=== PATIENT | female | born 1970 | race Caucasian/White ===

== ENCOUNTER → 2016-09-06 | Outpatient (CLI) | payer OTHER | END | disposition home or self-care (01) | LOC: C.LABMFLN 10:46 | PROVIDERS: ATTEND Family Medicine | DX: Z01.818 Encounter for other preprocedural examination (principal); M25.531 Pain in right wrist; M81.0 Age-related osteoporosis without current pathological fracture ==

== ENCOUNTER → 2017-06-04 | Outpatient (CLI) | payer OTHER ==
[~2017-06-04] MED LIST: BUPR200T2 PO; ERGO500037 PO; HYDR-3983 PO; LIDO1CRE16 TOP; PREG1CAP28 PO; TRAZ100T29 PO
== END | disposition home or self-care (01) ==
LOC: C.LABMFLN 08:25
PROVIDERS: ATTEND Family Medicine
DX: M79.2 Neuralgia and neuritis, unspecified (principal)

== ENCOUNTER 2023-05-30 20:37 | Inpatient (IN) ==
[2023-05-30 22:15] LABS: Alanine Aminotransferase 15 U/L (7-52); Albumin Globulin Ratio 1.4 (0.9-2); Albumin Level 3.9 gm/dl (3.4-5.0); Alkaline Phosphatase 58 U/L (34-104); Anion Gap 7 (3-11); Aspartate Aminotransferase 32 U/L (13-39); BUN Creatinine Ratio 20.7 (10-20); Bilirubin,Total 1.3 mg/dl (0.2-1.0); Blood Urea Nitrogen 18 mg/dl (6-23); Calcium 9.1 mg/dl (8.6-10.3); Carbon Dioxide 28 mmol/L (21-32); Chloride 101 mmol/L (98-107); Est GFR (African American) 86.9 ml/min; Globulin 2.7 gm/dl (2.5-4.0); Glucose 106 mg/dl (70-99(Fasting)); Sodium 136 mmol/L (136-145); Total Protein 6.6 gm/dl (6.0-8.3)
[2023-05-30 22:26] LABS: INR 1.3 (0.9-1.1); Partial Thromboplastin Ratio 1.1; Partial Thromboplastin Time 30 Seconds (21-31); Prothrombin Time 14.1 Seconds (9.0-12.0)
[2023-05-30 22:39] LABS: Hematocrit (blood only) 15.4 % (37.0-47.0); Hemoglobin 5.4 g/dl (12.0-16.0); Mean Corpuscular Hemoglobin 36.2 pg (25.0-34.0); Mean Corpuscular Hgb Conc 35.1 g/dL (32.0-36.0); Mean Corpuscular Volume 103.4 fL (80.0-100.0); Mean Platelet Volume 10.2 fL (9.4-12.4); Platelet Count 75 K/uL (130-400); RDW Coefficient of Variation 13.4 % (11.5-14.5); RDW Standard Deviation 49.7 fL (36.4-46.3); Red Blood Count 1.49 M/uL (4.20-5.40); White Blood Count 1.47 K/ul (4.8-10.8)
[2023-05-30 22:44] LABS: Adenovirus PCR Not Detected (NotDetected); Bordetella parapertussis PCR Not Detected (NotDetected); Bordetella pertussis PCR Not Detected (NotDetected); Chlamydia pneumoniae PCR Not Detected (NotDetected); Coronavirus 229E PCR Not Detected (NotDetected); Coronavirus CoV-2 (COVID19)PCR Not Detected (NotDetected); Coronavirus HKU1 PCR Not Detected (NotDetected); Coronavirus NL63 PCR Not Detected (NotDetected); Coronavirus OC43PCR Not Detected (NotDetected); Human Metapneumovirus PCR Not Detected (NotDetected); Influenza A PCR Not Detected (NotDetected); Influenza B PCR Not Detected (NotDetected); Mycoplasma pneumoniae PCR Not Detected (NotDetected); Parainfluenza Virus 1 PCR Not Detected (NotDetected); Parainfluenza Virus 2 PCR Not Detected (NotDetected); Parainfluenza Virus 3 PCR Not Detected (NotDetected); Parainfluenza Virus 4 PCR Not Detected (NotDetected); Respiratory Syncytial VirusPCR Not Detected (NotDetected); Rhinovirus/Enterovirus PCR Not Detected (NotDetected)
[2023-05-30 23:12] LABS: Polychromasia 1+; Tear Drop Cells 1+
[2023-05-30] MEDS: OPTIRAY 320 125ml IV ONE (23:31)
--- NOTE | 2023-05-31 00:07 | CT Scan Report ---
Exam(s): CTA NECK With Contrast IV Amt: 118 ML OPTIRAY 320 EXAM: CT Angiography Neck With Intravenous Contrast CLINICAL HISTORY: Reason for exam: soares. TECHNIQUE: Routine carotid CT angiography protocol was performed with intravenous contrast. NASCET criteria using the distal ICAs for comparison were used for evaluation of stenoses. CTDI is 38.37 mGy and DLP is 1125.22 mGy-cm. Automated exposure control was utilized for the study. A dose lowering technique was utilized adhering to the principles of ALARA. MIP reconstructed images were created and reviewed. CONTRAST: Patient received 118 ML OPTIRAY 320 of IV contrast COMPARISON: None. FINDINGS: Right common carotid artery: Patent. Right internal carotid artery: Patent. Right vertebral artery: Patent. Left common carotid artery: Patent. Left internal carotid artery: Patent. Left vertebral artery: Patent. Other: No significant atherosclerosis or stenosis. IMPRESSION: 1. No dissection, occlusion, or significant stenosis. CAROTID STENOSIS REFERENCE USING NASCET CRITERIA: % ICA stenosis = (1 - narrowest ICA diameter/diameter of distal cervical ICA) x 100. Mild - <50% stenosis. Moderate - 50-69% stenosis. Severe - 70-94% stenosis. Near occlusion - 95-99% stenosis. Occluded - 100% stenosis. Communications: Call Doctor Stroke Electronically signed by: Savanna Curry M.D. 05/31/23 00:07 AM
--- NOTE | 2023-05-31 00:07 | CT Scan Report ---
Exam(s): CTA HEAD With Contrast IV Amt: 118 ML OPTIRAY 320 EXAM: CT Angiography Head With Intravenous Contrast CLINICAL HISTORY: Reason for exam: soares. TECHNIQUE: Axial computed tomographic angiography images of the head with intravenous contrast. CTDI is 38.37 mGy and DLP is 1125.22 mGy-cm. Automated exposure control was utilized for the study. A dose lowering technique was utilized adhering to the principles of ALARA. MIP reconstructed images were created and reviewed. Mild motion artifact. CONTRAST: Patient received 118 ML OPTIRAY 320 of IV contrast COMPARISON: None. FINDINGS: Right internal carotid artery: Patent. Right anterior cerebral artery: Patent. Right middle cerebral artery: Patent. Right posterior cerebral artery: Patent. Right vertebral artery: Patent. Right dominant system. Left internal carotid artery: Patent. Left anterior cerebral artery: Patent. Left middle cerebral artery: Patent. Left posterior cerebral artery: Patent. Left vertebral artery: Patent. Basilar artery: Patent. Other: IMPRESSION: 1. No aneurysm or large vessel occlusion. Communications: Call Doctor Stroke Electronically signed by: Savanna Curry M.D. 05/31/23 00:06 AM
--- NOTE | 2023-05-31 00:09 | CT Scan Report ---
Exam(s): CT HEAD Without Contrast EXAM: CT Head Without Intravenous Contrast CLINICAL HISTORY: Reason for exam: soares. TECHNIQUE: Axial computed tomography images of the head/brain without intravenous contrast. CTDI is 38.37 mGy and DLP is 1125.22 mGy-cm. Automated exposure control was utilized for the study. A dose lowering technique was utilized adhering to the principles of ALARA. Mild to moderate motion artifact. COMPARISON: None. FINDINGS: Brain: No mass effect or acute infarct. No acute hemorrhage. Ventricles: No hydrocephalus or midline shift. Bones/joints: No skull fracture. Soft tissues: No scalp hematoma. Sinuses: Clear. Mastoid air cells: No mastoid effusion. IMPRESSION: 1. No acute intracranial abnormality. 2. Normal exam, limited by motion artifact. Communications: Call Doctor Stroke Electronically signed by: Savanna Curry M.D. 05/31/23 00:08 AM
[2023-05-31] MEDS: SODIUM CHLORIDE 0.9% 250 ML IV PRN (00:29)
[2023-05-31 00:46] LABS: Appearance Urine Clear (Clear); Bacteria Urine Automated Negative (Negative); Bilirubin Urine Negative (Negative); Blood Urine 3+ (Negative); Color Urine Yellow; Glucose Urine UA Negative (Negative); Ketones Urine Negative (Negative); Leukocyte Esterase Urine Negative (Negative); Nitrite Urine Negative (Negative); Protein Urine 1+ (Negative); RBC Urine Automated >30 /hpf (0-4); Specific Gravity Urine > 1.045 (1.000-1.030); Urobilinogen Urine Negative (Negative)
[2023-05-31 01:14] LABS: Iron 153 mcg/dl (35-150)
[2023-05-31 01:50] LABS: Reticulocyte % 1.49 % (0.50-2.00); Reticulocytes # 0.02 10^6/uL (0.020-0.100)
--- NOTE | 2023-05-31 01:56 | Emergency Department Note ---
History of Present Illness General Chief complaint: Flu Like Symptoms Stated complaint: NAUSEA,COLD SWEATS, DRY MOUTH,BACK PAIN, LETHARGIC Time Seen by Provider: 05/30/23 22:14 History of Present Illness Provider complaint: Fatigue headache 53-year-old female presents emergency department for fatigue. Patient states she has been feeling increasing fatigue for the last 3 weeks. Patient reports she was having some back pain 3 weeks ago for which her PCP prescribed her an NSAID. Patient states that after taking the NSAID she started noticing that she was having some bleeding in her gums and ulcers in her mouth. She states she denies any melena. She states she does have some mild hematochezia but thinks she might have a hemorrhoid. She denies any vaginal bleeding. No nausea or vomiting. Patient states that she is feeling back aches so she went to a chiropractor who did a manipulation on her neck. She states after the manipulation on her neck was done she felt very dizzy and more fatigued. No chest pain or difficulty breathing. Home Medications Medication Instructions Recorded Confirmed Type bupropion HCl 200 mg tablet,12 hr 200 mg PO BID #180 ea 04/25/23 05/30/23 Rx sustained-release (Wellbutrin SR) celecoxib 200 mg capsule (Celebrex) 200 mg PO DAILY PRN pain #30 caps 04/25/23 05/30/23 Rx hydrocodone 7.5 mg-acetaminophen 1 - 2 tab PO BID PRN pain #120 tabs 05/25/23 05/30/23 Rx 325 mg tablet Allergies Allergy/AdvReac Type Severity Reaction Status Date / Time tapentadol [From Nucynta] Allergy Verified 04/25/23 09:11 tramadol Allergy Verified 04/25/23 09:11 Past Med/Surg History Medical History Complex regional pain syndrome Esophageal reflux Neuropathic pain Neuropathy, axillary nerve Opiate use Peripheral neuropathy Insomnia Vitamin D deficiency Depression Complex regional pain syndrome i of right upper limb delivery delivered Rotator cuff tear Surgical History History of appendectomy History of endometrial ablation History of hysterectomy for benign disease History of arthroscopy of right shoulder Family History Father Diabetes Hypertension Hypercholesteremia Stroke Lung cancer Mother Hypertension Cancer Hypercholesteremia Ovarian cancer, Onset Age: 28 Still alive at age 71 Dementia Sister Hypertension Brother Hypertension Social History Smoking Status: Unknown if ever smoked Hx Alcohol Use: No Hx Substance Use: Yes (medical marijuana) Preferred Language: Guatemalan marital status: Current Living Situation Comment: child current occupational status: disabled Feels Safe at Home: Yes Physical Activity Frequency: Does not Exercise Seatbelt Use: always Physical Exam Vital Signs Vital Signs - 24 hr 05/30/23 20:44 05/30/23 22:32 05/30/23 22:43 Temperature 36.7 C Temperature Source Temporal Artery Scan Pulse Rate 121 H 104 H Pulse Rate [Left Finger] 113 H Respiratory Rate 19 Respiratory Effort / Characteristics Non-Labored Spontaneous Respiratory Depth Normal Respiratory Pattern Regular Blood Pressure 158/74 H Blood Pressure [Left Arm] 137/80 Blood Pressure Mean 102 Blood Pressure Mean [Left Arm] 99 Pulse Oximetry 98 97 Oxygen Delivery Method Room Air Room Air Sepsis Recent Fever Within 48 Hours No Sepsis New/Unexplained Change in Mental Status N/A Sepsis Action Taken by Nursing No Action Required 05/31/23 00:00 05/31/23 00:28 05/31/23 00:30 Temperature 37.5 C Temperature Source Oral Pulse Rate 114 H 109 H Pulse Rate [Left Finger] 102 H Respiratory Rate 17 17 18 Respiratory Effort / Characteristics Respiratory Depth Respiratory Pattern Blood Pressure 153/82 H 141/77 H Blood Pressure [Left Arm] 124/76 Blood Pressure Mean 105 98 Blood Pressure Mean [Left Arm] 92 Pulse Oximetry 97 98 95 Oxygen Delivery Method Room Air Sepsis Recent Fever Within 48 Hours Sepsis New/Unexplained Change in Mental Status Sepsis Action Taken by Nursing 05/31/23 00:35 05/31/23 00:40 05/31/23 00:45 Temperature 37.5 C 37.6 C H 37.2 C Temperature Source Oral Oral Oral Pulse Rate 107 H 105 H 115 H Pulse Rate [Left Finger] Respiratory Rate 16 17 16 Respiratory Effort / Characteristics Respiratory Depth Respiratory Pattern Blood Pressure 141/77 H 138/80 157/84 H Blood Pressure [Left Arm] Blood Pressure Mean 98 99 108 Blood Pressure Mean [Left Arm] Pulse Oximetry 95 95 97 Oxygen Delivery Method Sepsis Recent Fever Within 48 Hours Sepsis New/Unexplained Change in Mental Status Sepsis Action Taken by Nursing 05/31/23 01:00 05/31/23 01:15 05/31/23 01:30 Temperature 37.4 C 37.4 C Temperature Source Oral Oral Pulse Rate 106 H 112 H 102 H Pulse Rate [Left Finger] Respiratory Rate 16 18 19 Respiratory Effort / Characteristics Respiratory Depth Respiratory Pattern Blood Pressure 139/81 161/93 H 137/74 Blood Pressure [Left Arm] Blood Pressure Mean 100 115 95 Blood Pressure Mean [Left Arm] Pulse Oximetry 95 97 95 Oxygen Delivery Method Sepsis Recent Fever Within 48 Hours Sepsis New/Unexplained Change in Mental Status Sepsis Action Taken by Nursing Physical Exam HENT: Exam performed. -Head: Normocephalic and atraumatic. -Right Ear: External ear normal. No mastoid erythema -Left Ear: External ear normal. No mastoid erythema -Mouth/Throat: The oropharynx is clear and moist. No trismus in the jaw. No dental abscesses or uvula swelling. No oropharyngeal exudate or tonsillar abscesses. EYES: Conjunctivae and EOM are normal. Pupils are equal, round, and reactive to light. Right eye exhibits no discharge. Left eye exhibits no discharge. No scleral icterus. No wet purpura. NECK: Normal range of motion. Neck supple. No JVD present. No carotid bruit. Full range of motion. No meningeal signs. CV: Normal rate, regular rhythm, normal heart sounds and intact distal pulses. There is no peripheral edema. Palpable radial pulses bue. PULM/CHEST: Effort normal and breath sounds normal. No respiratory distress. No stridor. She has no wheezes. She has no rales. ABD: The abdomen is soft. There is no tenderness. There is no rebound, no guarding. Rectal: Rectal exam performed with female nursing farm implement engine mechanic Meghna at bedside. Patient has large external hemorrhoid that is flesh-colored and soft. Note tenderness to palpation. No active bleeding. Hemoccult negative. MUSC/SKEL: Normal range of motion. There is no peripheral edema, tenderness or deformity. LYMPH: No cervical adenopathy. NEURO: She is alert and oriented to person, place, and time. She has normal strength. No cranial nerve deficit or sensory deficit. Coordination and gait normal. GCS eye subscore is 4. GCS verbal subscore is 5. GCS motor subscore is 6. Cerebellar tests wnl. SKIN: Skin is warm and dry. She is not diaphoretic. PSYCH: She has a normal mood and affect. Behavior is normal. Judgment and thought content normal. Course Course 2214: The patient was evaluated in room C11B. A complete history and physical exam was performed Cardiac monitoring: An order was placed for continuous cardiac monitoring. The monitor shows a rate of 110 with sinus rhythm interpreted by me Patient was seen during a time of extreme volume and extreme acuity in the emergency department. Nursing triage protocols were initiated and labs were drawn by protocol in the triage area. 2235: Lab reports that the patient's hemoglobin is 5.4. Patient be transfused 2 units packed red blood cells. Will obtain CT of the head CTA head and neck to make sure that the patient did not suffer any sort of vascular injury after chiropractic manipulation. 2326: Spoke with Dr. Tay hematology oncology. He states he is concerned that the patient might have leukemia he states to admit to the medicine service and to obtain iron B12 and folate level. He states he will arrange for a bone marrow biopsy tomorrow. 0055: CTs are within normal limits. Spoke with Dr. Molina [facility] hospitalist who will admit the patient to his service. Administered Medications Sodium Chloride (Nss) 250 mls @ 15 mls/hr IV .[id number] PRN PRN Reason: For Transfusion Duration Stop: 05/31/23 08:35 Last Admin: 05/31/23 00:29 Dose: 15 mls/hr Documented By: AMANDA Discontinued Medications Ioversol (Optiray 320 125ml) 125 ml IV ONCE ONE Stop: 05/30/23 23:32 Last Admin: 05/30/23 23:31 Dose: 118 ml Documented By: NIKKI Critical Care Time Critical Care Time: Yes Total Critical Care Time: 56 I have personally spent greater than 56 minutes of critical care time in the direct management of this patient. This includes bedside care, interpretation of diagnostic studies, and testing, discussion with consultants, patient, and family members, and other required patient management activities. This 56 minutes is in excess of all separately billable procedures. Medical Decision Making Laboratory Data Attestation: I reviewed the patient's lab results. 05/30/23 21:41 05/30/23 21:41 Lab Results 05/30/23 05/30/23 05/30/23 Range/Units 20:47 21:41 23:02 WBC 1.47 L (4.8-10.8) K/ul RBC 1.49 L (4.20-5.40) M/uL Hgb 5.4 L* (12.0-16.0) g/dl Hct 15.4 L* (37.0-47.0) % MCV 103.4 H (80.0-100.0) fL MCH 36.2 H (25.0-34.0) pg MCHC 35.1 (32.0-36.0) g/dL RDW Std Deviation 49.7 H (36.4-46.3) fL RDW Coeff of Anna 13.4 (11.5-14.5) % Plt Count 75 L (130-400) K/uL MPV 10.2 (9.4-12.4) fL Immature Gran % (Auto) 0.0 % Neut % (Auto) 7.5 % Lymph % (Auto) 78.9 % [place] % (Auto) 13.6 % Eos % (Auto) 0.0 % Baso % (Auto) 0.0 % Neut # (Auto) (1.40-6.50) K/uL Lymph # (Auto) (1.20-3.40) K/uL [place] # (Auto) (0.11-0.59) K/uL Eos # (Auto) (0.00-0.50) K/uL Baso # (Auto) (0.00-0.20) K/uL Immature Gran # (Auto) (0.01-0.20) K/uL Neutrophils % (Manual) 6 % Lymphocytes % (Manual) 87 % Monocytes % (Manual) 1 % Blast Cells % (Manual) 6 % Neutrophils # (Manual) 6.00 (1.40-6.50) K/uL Total Absolute Neuts 0.92 L* (1.4-6.5) K/uL Lymphocytes # (Manual) 83.00 H (1.2-3.4) K/uL Total Abs Lymphocytes 1.27 (1.2-3.4) K/uL Monocytes # (Manual) 1.00 H (0.11-0.59) K/uL Blast Cells # (Man) 6.00 H (0-0) K/uL Blood Smear Review Polychromasia 1+ Tear Drop Cells 1+ PT 14.1 H (9.0-12.0) Seconds INR 1.3 H (0.9-1.1) APTT 30 (21-31) Seconds PTT Ratio 1.1 Sodium 136 (136-145) mmol/L Potassium 4.0 (3.5-5.1) mmol/L Chloride 101 (98-107) mmol/L Carbon Dioxide 28 (21-32) mmol/L Anion Gap 7 (3-11) BUN 18 (6-23) mg/dl Creatinine 0.87 (0.6-1.2) mg/dl Est Cr Clr Drug Dosing Not Reportable Est GFR ( Amer) 86.9 ml/min Est GFR (Non-Af Amer) 75.0 ml/min BUN/Creatinine Ratio 20.7 H (10-20) Glucose 106 H (70-99(Fasting)) mg/dl Calcium 9.1 (8.6-10.3) mg/dl Iron 153 H (35-150) mcg/dl Total Bilirubin 1.3 H (0.2-1.0) mg/dl AST 32 (13-39) U/L ALT 15 (7-52) U/L Alkaline Phosphatase 58 (34-104) U/L Total Protein 6.6 (6.0-8.3) gm/dl Albumin 3.9 (3.4-5.0) gm/dl Globulin 2.7 (2.5-4.0) gm/dl Albumin/Globulin Ratio 1.4 (0.9-2) Urine Color Urine Appearance (Clear) Urine pH (4.5-7.5) Ur Specific Conrad (1.000-1.030) Urine Protein (Negative) Urine Glucose (UA) (Negative) Urine Ketones (Negative) Urine Blood (Negative) Urine Nitrite (Negative) Urine Bilirubin (Negative) Urine Urobilinogen (Negative) Ur Leukocyte Esterase (Negative) Urine WBC (Auto) (0-5) /hpf Urine RBC (Auto) (0-4) /hpf U Hyaline Cast (Auto) (0-5) /lpf U Epithel Cells (Auto) (0-5) /lpf Urine Bacteria (Auto) (Negative) Adenovirus (PCR) Not Detected (NotDetected) B. pertussis DNA (PCR) Not Detected (NotDetected) B.parapertussis DNA PCR Not Detected (NotDetected) C. pneumoniae DNA (PCR) Not Detected (NotDetected) Coronavirus OC43 (PCR) Not Detected (NotDetected) Coronavirus HKU1 (PCR) Not Detected (NotDetected) Coronavirus 229E (PCR) Not Detected (NotDetected) SARS-CoV-2 (PCR) Not Detected (NotDetected) Coronavirus NL63 (PCR) Not Detected (NotDetected) Human Metapneumovir PCR Not Detected (NotDetected) Influenza Type A (PCR) Not Detected (NotDetected) Influenza Type B (PCR) Not Detected (NotDetected) M. pneumoniae (PCR) Not Detected (NotDetected) Parainfluenza 1 (PCR) Not Detected (NotDetected) Parainfluenza 2 (PCR) Not Detected (NotDetected) Parainfluenza 3 (PCR) Not Detected (NotDetected) Parainfluenza 4 (PCR) Not Detected (NotDetected) RSV (PCR) Not Detected (NotDetected) Entero/Rhino (PCR) Not Detected (NotDetected) Blood Type O Positive Blood Type Recheck Antibody Screen NEGATIVE Crossmatch See Detail 05/30/23 05/31/23 Range/Units 23:10 00:32 WBC (4.8-10.8) K/ul RBC (4.20-5.40) M/uL Hgb (12.0-16.0) g/dl Hct (37.0-47.0) % MCV (80.0-100.0) fL MCH (25.0-34.0) pg MCHC (32.0-36.0) g/dL RDW Std Deviation (36.4-46.3) fL RDW Coeff of Anna (11.5-14.5) % Plt Count (130-400) K/uL MPV (9.4-12.4) fL Immature Gran % (Auto) % Neut % (Auto) % Lymph % (Auto) % [place] % (Auto) % Eos % (Auto) % Baso % (Auto) % Neut # (Auto) (1.40-6.50) K/uL Lymph # (Auto) (1.20-3.40) K/uL [place] # (Auto) (0.11-0.59) K/uL Eos # (Auto) (0.00-0.50) K/uL Baso # (Auto) (0.00-0.20) K/uL Immature Gran # (Auto) (0.01-0.20) K/uL Neutrophils % (Manual) % Lymphocytes % (Manual) % Monocytes % (Manual) % Blast Cells % (Manual) % Neutrophils # (Manual) (1.40-6.50) K/uL Total Absolute Neuts (1.4-6.5) K/uL Lymphocytes # (Manual) (1.2-3.4) K/uL Total Abs Lymphocytes (1.2-3.4) K/uL Monocytes # (Manual) (0.11-0.59) K/uL Blast Cells # (Man) (0-0) K/uL Blood Smear Review Polychromasia Tear Drop Cells PT (9.0-12.0) Seconds INR (0.9-1.1) APTT (21-31) Seconds PTT Ratio Sodium (136-145) mmol/L Potassium (3.5-5.1) mmol/L Chloride (98-107) mmol/L Carbon Dioxide (21-32) mmol/L Anion Gap (3-11) BUN (6-23) mg/dl Creatinine (0.6-1.2) mg/dl Est Cr Clr Drug Dosing Est GFR ( Amer) ml/min Est GFR (Non-Af Amer) ml/min BUN/Creatinine Ratio (10-20) Glucose (70-99(Fasting)) mg/dl Calcium (8.6-10.3) mg/dl Iron (35-150) mcg/dl Total Bilirubin (0.2-1.0) mg/dl AST (13-39) U/L ALT (7-52) U/L Alkaline Phosphatase (34-104) U/L Total Protein (6.0-8.3) gm/dl Albumin (3.4-5.0) gm/dl Globulin (2.5-4.0) gm/dl Albumin/Globulin Ratio (0.9-2) Urine Color Yellow Urine Appearance Clear (Clear) Urine pH 6.0 (4.5-7.5) Ur Specific [place] > 1.045 H (1.000-1.030) Urine Protein 1+ H (Negative) Urine Glucose (UA) Negative (Negative) Urine Ketones Negative (Negative) Urine Blood 3+ H (Negative) Urine Nitrite Negative (Negative) Urine Bilirubin Negative (Negative) Urine Urobilinogen Negative (Negative) Ur Leukocyte Esterase Negative (Negative) Urine WBC (Auto) 1-5 (0-5) /hpf Urine RBC (Auto) >30 H (0-4) /hpf U Hyaline Cast (Auto) 1-5 (0-5) /lpf U Epithel Cells (Auto) 10-20 H (0-5) /lpf Urine Bacteria (Auto) Negative (Negative) Adenovirus (PCR) (NotDetected) B. pertussis DNA (PCR) (NotDetected) B.parapertussis DNA PCR (NotDetected) C. pneumoniae DNA (PCR) (NotDetected) Coronavirus OC43 (PCR) (NotDetected) Coronavirus HKU1 (PCR) (NotDetected) Coronavirus 229E (PCR) (NotDetected) SARS-CoV-2 (PCR) (NotDetected) Coronavirus NL63 (PCR) (NotDetected) Human Metapneumovir PCR (NotDetected) Influenza Type A (PCR) (NotDetected) Influenza Type B (PCR) (NotDetected) M. pneumoniae (PCR) (NotDetected) Parainfluenza 1 (PCR) (NotDetected) Parainfluenza 2 (PCR) (NotDetected) Parainfluenza 3 (PCR) (NotDetected) Parainfluenza 4 (PCR) (NotDetected) RSV (PCR) (NotDetected) Entero/Rhino (PCR) (NotDetected) Blood Type Blood Type Recheck O Positive Antibody Screen Crossmatch Imaging Data Radiologist's Impression: Head CT 05/30/23 22:36 CR Exam(s): CT HEAD Without Contrast EXAM: CT Head Without Intravenous Contrast CLINICAL HISTORY: Reason for exam: soares. TECHNIQUE: Axial computed tomography images of the head/brain without intravenous contrast. CTDI is 38.37 mGy and DLP is 1125.22 mGy-cm. Automated exposure control was utilized for the study. A dose lowering technique was utilized adhering to the principles of ALARA. Mild to moderate motion artifact. COMPARISON: None. FINDINGS: Brain: No mass effect or acute infarct. No acute hemorrhage. Ventricles: No hydrocephalus or midline shift. Bones/joints: No skull fracture. Soft tissues: No scalp hematoma. Sinuses: Clear. Mastoid air cells: No mastoid effusion. IMPRESSION: 1. No acute intracranial abnormality. 2. Normal exam, limited by motion artifact. Communications: Call Doctor Stroke Electronically signed by: Savanna Curry M.D. 05/31/23 00:08 AM Head CTA 05/30/23 22:36 CR Exam(s): CTA HEAD With Contrast IV Amt: 118 ML OPTIRAY 320 EXAM: CT Angiography Head With Intravenous Contrast CLINICAL HISTORY: Reason for exam: soares. TECHNIQUE: Axial computed tomographic angiography images of the head with intravenous contrast. CTDI is 38.37 mGy and DLP is 1125.22 mGy-cm. Automated exposure control was utilized for the study. A dose lowering technique was utilized adhering to the principles of ALARA. MIP reconstructed images were created and reviewed. Mild motion artifact. CONTRAST: Patient received 118 ML OPTIRAY 320 of IV contrast COMPARISON: None. FINDINGS: Right internal carotid artery: Patent. Right anterior cerebral artery: Patent. Right middle cerebral artery: Patent. Right posterior cerebral artery: Patent. Right vertebral artery: Patent. Right dominant system. Left internal carotid artery: Patent. Left anterior cerebral artery: Patent. Left middle cerebral artery: Patent. Left posterior cerebral artery: Patent. Left vertebral artery: Patent. Basilar artery: Patent. Other: IMPRESSION: 1. No aneurysm or large vessel occlusion. Communications: Call Doctor Stroke Electronically signed by: Savanna Curry M.D. 05/31/23 00:06 AM Neck CTA 05/30/23 22:36 CR Exam(s): CTA NECK With Contrast IV Amt: 118 ML OPTIRAY 320 EXAM: CT Angiography Neck With Intravenous Contrast CLINICAL HISTORY: Reason for exam: soares. TECHNIQUE: Routine carotid CT angiography protocol was performed with intravenous contrast. NASCET criteria using the distal ICAs for comparison were used for evaluation of stenoses. CTDI is 38.37 mGy and DLP is 1125.22 mGy-cm. Automated exposure control was utilized for the study. A dose lowering technique was utilized adhering to the principles of ALARA. MIP reconstructed images were created and reviewed. CONTRAST: Patient received 118 ML OPTIRAY 320 of IV contrast COMPARISON: None. FINDINGS: Right common carotid artery: Patent. Right internal carotid artery: Patent. Right vertebral artery: Patent. Left common carotid artery: Patent. Left internal carotid artery: Patent. Left vertebral artery: Patent. Other: No significant atherosclerosis or stenosis. IMPRESSION: 1. No dissection, occlusion, or significant stenosis. CAROTID STENOSIS REFERENCE USING NASCET CRITERIA: % ICA stenosis = (1 - narrowest ICA diameter/diameter of distal cervical ICA) x 100. Mild - <50% stenosis. Moderate - 50-69% stenosis. Severe - 70-94% stenosis. Near occlusion - 95-99% stenosis. Occluded - 100% stenosis. Communications: Call Doctor Stroke Electronically signed by: Savanna Curry M.D. 05/31/23 00:07 AM ECG Data Attestation: I personally reviewed and interpreted this ECG as follows: Rate (beats per minute): 116 Rhythm: + sinus tachycardia ECG Intervals/blocks: + Normal OH and + Normal QT-c ECG ST segments: + Normal ST segments Additional Comments: QRS 76 MDM Narrative 2214: The patient was evaluated in room C11B. A complete history and physical exam was performed Cardiac monitoring: An order was placed for continuous cardiac monitoring. The monitor shows a rate of 110 with sinus rhythm interpreted by me Patient was seen during a time of extreme volume and extreme acuity in the emergency department. Nursing triage protocols were initiated and labs were drawn by protocol in the triage area. 2235: Lab reports that the patient's hemoglobin is 5.4. Patient be transfused 2 units packed red blood cells. Will obtain CT of the head CTA head and neck to make sure that the patient did not suffer any sort of vascular injury after chiropractic manipulation. 2326: Spoke with Dr. Tay hematology oncology. He states he is concerned that the patient might have leukemia he states to admit to the medicine service and to obtain iron B12 and folate level. He states he will arrange for a bone marrow biopsy tomorrow. 0055: CTs are within normal limits. Spoke with Dr. Molina [facility] hospitalist who will admit the patient to his service. Impression & Plan Pancytopenia Discharge Plan Visit Data Chief Complaint: Flu Like Symptoms Stated Complaint: NAUSEA,COLD SWEATS, DRY MOUTH,BACK PAIN, LETHARGIC ED Provider: Karlo Li Discharge Problem: Pancytopenia Patient Disposition: Admitted As Inpatient Forms Stand Alone Forms: My [facility] Prescriptions Prescriptions: No Action hydrocodone-acetaminophen 7.5-325 mg tablet 1 - 2 tab PO BID PRN (Reason: pain) Qty: 120 0RF celecoxib [Celebrex] 200 mg capsule 200 mg PO DAILY PRN (Reason: pain) Qty: 30 0RF bupropion HCl [Wellbutrin SR] 200 mg tablet sustained-release 12 hr 200 mg PO BID Qty: 180 3RF Referrals Referrals: Vini Burkett MD [Primary Care Provider] -
[2023-05-31 02:01] LABS: Total Iron Binding Cap Calc 279 mcg/dl (250-450); Transferrin (FE) Percent Satur 55 % (15-50); Unsaturated Iron Binding Cap 126 mcg/dl (155-355)
--- NOTE | 2023-05-31 02:03 | History & Physical Report ---
Date of Service May 31, 2023 Assessment & Plan (1) Pancytopenia: (2) Depression with anxiety: (3) Complex regional pain syndrome: (4) Esophageal reflux: (5) Opiate use: (6) Lumbar degenerative disc disease: (7) Low back pain: Plan Pancytopenia- No previous l CBC with differential for comparison WBC 1.47, hemoglobin 5.4, hematocrit 15.4, platelets 75 ANC 0.92 Placed on neutropenic precautions Order peripheral smear, reticulocyte count, B12, folate, iron studies Receiving 2 units PRBCs this evening Serial laboratories Patient likely to undergo bone marrow biopsy with hematology/oncology Dr. Tay. Concerns regarding MDS versus leukemia ED had performed CT scanning of head, CTA head and neck, all of which were negative We have added CT scan abdomen and pelvis and CT scan of chest, without significant findings Lumbar degenerative disc disease/low back pain/complex regional pain syndrome- Hold Celebrex Continue hydrocodone as needed History of Present Illness Chief Complaint: The patient presents to the emergency department with complaint of 3 weeks of right buttock/sacroiliac pain, had been given Celebrex by her PCP which caused sores and bleeding gums so she therefore stopped it. She noted also some transient blood in stool, which she thinks is related to hemorrhoid. She saw a chiropractor last week who did some neck adjustments, and reports that she has been sleeping a lot ever since. Due to progressive fatigue, she had gone to the [place] emergency department last night, but could not stay because the wait was 4 hours long. She presents to the emergency department MRI of the knee this evening with primary concerns regarding fatigue and right sacroiliac/buttock pain Primary Care Provider: Vini Burkett MD The patient is a 53-year-old female with a past medical history including depression with anxiety, lumbar degenerative disc disease, complex regional pain syndrome with chronic right shoulder pain, GERD, neuropathy, long-term opiate use. The patient presents to the emergency department as noted above. Allergies Allergy/AdvReac Type Severity Reaction Status Date / Time tapentadol [From Nucynta] Allergy Verified 04/25/23 09:11 tramadol Allergy Verified 04/25/23 09:11 Home Medications Medication Instructions Recorded Confirmed Type bupropion HCl 200 mg tablet,12 hr 200 mg PO BID #180 ea 04/25/23 05/30/23 Rx sustained-release (Wellbutrin SR) celecoxib 200 mg capsule (Celebrex) 200 mg PO DAILY PRN pain #30 caps 04/25/23 05/30/23 Rx hydrocodone 7.5 mg-acetaminophen 1 - 2 tab PO BID PRN pain #120 tabs 05/25/23 05/30/23 Rx 325 mg tablet Past Med/Surg History Medical History Complex regional pain syndrome Esophageal reflux Neuropathic pain Neuropathy, axillary nerve Opiate use Peripheral neuropathy Insomnia Vitamin D deficiency Depression Complex regional pain syndrome i of right upper limb delivery delivered Rotator cuff tear Surgical History History of appendectomy History of endometrial ablation History of hysterectomy for benign disease History of arthroscopy of right shoulder Family History Father Diabetes Hypertension Hypercholesteremia Stroke Lung cancer Mother Hypertension Cancer Hypercholesteremia Ovarian cancer, Onset Age: 28 Still alive at age 71 Dementia Sister Hypertension Brother Hypertension Social History Smoking Status: Unknown if ever smoked Hx Alcohol Use: No Hx Substance Use: Yes (medical marijuana) Preferred Language: Samoan marital status: Current Living Situation Comment: child current occupational status: disabled Feels Safe at Home: Yes Physical Activity Frequency: Does not Exercise Seatbelt Use: always Review of Systems Review of Systems: The patient denies chest pain, palpitations, cough, lower extremity swelling, sore throat, fevers, chills, sweats, weight change, fatigue, nausea, vomiting, diarrhea , constipation, abdominal pain, pelvic pain, blood in urine, dysuria, urinary frequency or urgency, lightheadedness, dizziness, headache, memory loss, loss of consciousness, rash, focal or generalized weakness, numbness or tingling in arms, generalized arthralgias or myalgias, back, or night sweats. The review of systems is otherwise negative other than for that already noted above, and at least 10 systems have been reviewed. Physical Exam Physical Exam: The patient is awake, alert and oriented 3, well developed and well nourished, normocephalic and atraumatic, lying in bed and in no acute distress. HEENT--PERRL, EOMI, mucous membranes and oropharynx dry. Neck--supple. No JVD. No bruits. Thyroid normal, trachea midline, no adenopathy. Heart--normal S1 and S2. No murmurs, rubs or gallops. Lungs--clear bilaterally, no respiratory distress, no accessory muscle use. Abdomen--normal bowel sounds and soft. Nontender. Nondistended, no hernias or masses, no organomegaly. Extremities-- No edema. Dermatologic--normal skin turgor, normal color, no abnormal lymph nodes, no rash. Neurologic--cranial nerves II through XII grossly intact. Rheumatologic--mild reproducible pain over right lower lumbar and sacroiliac area Psychiatric--normal affect. Results & Data Results & Data Vital Signs (Past 12 Hours) Vital Signs Temp Pulse Pulse Resp BP BP Pulse Ox 05/31/23 01:45 37.1 C 100 H 22 133/75 97 05/31/23 01:30 102 H 19 137/74 95 05/31/23 01:15 37.4 C 112 H 18 161/93 H 97 05/31/23 01:00 37.4 C 106 H 16 139/81 95 05/31/23 00:45 37.2 C 115 H 16 157/84 H 97 05/31/23 00:40 37.6 C H 105 H 17 138/80 95 05/31/23 00:35 37.5 C 107 H 16 141/77 H 95 05/31/23 00:30 109 H 18 141/77 H 95 05/31/23 00:28 37.5 C 114 H 17 153/82 H 98 05/31/23 00:00 102 H 17 124/76 97 05/30/23 22:43 113 H 137/80 97 05/30/23 22:32 104 H 05/30/23 20:44 36.7 C 121 H 19 158/74 H 98 O2 Del Method 05/31/23 01:45 05/31/23 01:30 05/31/23 01:15 05/31/23 01:00 05/31/23 00:45 05/31/23 00:40 05/31/23 00:35 05/31/23 00:30 05/31/23 00:28 05/31/23 00:00 Room Air 05/30/23 22:43 Room Air 05/30/23 22:32 05/30/23 20:44 Room Air Laboratory Results Laboratory Results WBC 1.47 K/ul (4.8-10.8) L 05/30/23 21:41 RBC 1.49 M/uL (4.20-5.40) L 05/30/23 21:41 Hgb 5.4 g/dl (12.0-16.0) L* 05/30/23 21:41 Hct 15.4 % (37.0-47.0) L* 05/30/23 21:41 MCV 103.4 fL (80.0-100.0) H 05/30/23 21:41 MCH 36.2 pg (25.0-34.0) H 05/30/23 21:41 MCHC 35.1 g/dL (32.0-36.0) 05/30/23 21:41 RDW Std Deviation 49.7 fL (36.4-46.3) H 05/30/23 21:41 RDW Coeff of Anna 13.4 % (11.5-14.5) 05/30/23 21:41 Plt Count 75 K/uL (130-400) L 05/30/23 21:41 MPV 10.2 fL (9.4-12.4) 05/30/23 21:41 Immature Gran % (Auto) 0.0 % 05/30/23 21:41 Neut % (Auto) 7.5 % 05/30/23 21:41 Lymph % (Auto) 78.9 % 05/30/23 21:41 [place] % (Auto) 13.6 % 05/30/23 21:41 Eos % (Auto) 0.0 % 05/30/23 21:41 Baso % (Auto) 0.0 % 05/30/23 21:41 Reticulocyte % (Auto) 1.49 % (0.50-2.00) 05/30/23 21:41 Neut # (Auto) K/uL (1.40-6.50) 05/30/23 21:41 Lymph # (Auto) K/uL (1.20-3.40) 05/30/23 21:41 [place] # (Auto) K/uL (0.11-0.59) 05/30/23 21:41 Eos # (Auto) K/uL (0.00-0.50) 05/30/23 21:41 Baso # (Auto) K/uL (0.00-0.20) 05/30/23 21:41 Reticulocyte # 0.020 10^6/uL (0.020-0.100) 05/30/23 21:41 Immature Gran # (Auto) K/uL (0.01-0.20) 05/30/23 21:41 Neutrophils % (Manual) 6 % 05/30/23 21:41 Lymphocytes % (Manual) 87 % 05/30/23 21:41 Monocytes % (Manual) 1 % 05/30/23 21:41 Blast Cells % (Manual) 6 % 05/30/23 21:41 Neutrophils # (Manual) 6.00 K/uL (1.40-6.50) 05/30/23 21:41 Total Absolute Neuts 0.92 K/uL (1.4-6.5) L* 05/30/23 21:41 Lymphocytes # (Manual) 83.00 K/uL (1.2-3.4) H 05/30/23 21:41 Total Abs Lymphocytes 1.27 K/uL (1.2-3.4) 05/30/23 21:41 Monocytes # (Manual) 1.00 K/uL (0.11-0.59) H 05/30/23 21:41 Blast Cells # (Man) 6.00 K/uL (0-0) H 05/30/23 21:41 Blood Smear Review 05/30/23 21:41 Polychromasia 1+ 05/30/23 21:41 Tear Drop Cells 1+ 05/30/23 21:41 PT 14.1 Seconds (9.0-12.0) H 05/30/23 21:41 INR 1.3 (0.9-1.1) H 05/30/23 21:41 APTT 30 Seconds (21-31) 05/30/23 21:41 PTT Ratio 1.1 05/30/23 21:41 Sodium 136 mmol/L (136-145) 05/30/23 21:41 Potassium 4.0 mmol/L (3.5-5.1) 05/30/23 21:41 Chloride 101 mmol/L (98-107) 05/30/23 21:41 Carbon Dioxide 28 mmol/L (21-32) 05/30/23 21:41 Anion Gap 7 (3-11) 05/30/23 21:41 BUN 18 mg/dl (6-23) 05/30/23 21:41 Creatinine 0.87 mg/dl (0.6-1.2) 05/30/23 21:41 Est Cr Clr Drug Dosing Not Reportable 05/30/23 21:41 Est GFR ( Amer) 86.9 ml/min 05/30/23 21:41 Est GFR (Non-Af Amer) 75.0 ml/min 05/30/23 21:41 BUN/Creatinine Ratio 20.7 (10-20) H 05/30/23 21:41 Glucose 106 mg/dl (70-99(Fasting)) H 05/30/23 21:41 Calcium 9.1 mg/dl (8.6-10.3) 05/30/23 21:41 Iron 153 mcg/dl (35-150) H 05/30/23 21:41 TIBC 279 mcg/dl (250-450) 05/30/23 21:41 Unsaturated IBC 126 mcg/dl (155-355) L 05/30/23 21:41 Transferrin % Sat 55 % (15-50) H 05/30/23 21:41 Ferritin 1463.4 ng/ml (8-388) H 05/30/23 21:41 Total Bilirubin 1.3 mg/dl (0.2-1.0) H 05/30/23 21:41 AST 32 U/L (13-39) 05/30/23 21:41 ALT 15 U/L (7-52) 05/30/23 21:41 Alkaline Phosphatase 58 U/L (34-104) 05/30/23 21:41 Total Protein 6.6 gm/dl (6.0-8.3) 05/30/23 21:41 Albumin 3.9 gm/dl (3.4-5.0) 05/30/23 21:41 Globulin 2.7 gm/dl (2.5-4.0) 05/30/23 21:41 Albumin/Globulin Ratio 1.4 (0.9-2) 05/30/23 21:41 Vitamin B12 115 pg/ml (180-914) L 05/30/23 21:41 Folate > 22.30 ng/ml (>5.38) 05/30/23 21:41 Urine Color Yellow 05/31/23 00:32 Urine Appearance Clear (Clear) 05/31/23 00:32 Urine pH 6.0 (4.5-7.5) 05/31/23 00:32 Ur Specific [place] > 1.045 (1.000-1.030) H 05/31/23 00:32 Urine Protein 1+ (Negative) H 05/31/23 00:32 Urine Glucose (UA) Negative (Negative) 05/31/23 00:32 Urine Ketones Negative (Negative) 05/31/23 00:32 Urine Blood 3+ (Negative) H 05/31/23 00:32 Urine Nitrite Negative (Negative) 05/31/23 00:32 Urine Bilirubin Negative (Negative) 05/31/23 00:32 Urine Urobilinogen Negative (Negative) 05/31/23 00:32 Ur Leukocyte Esterase Negative (Negative) 05/31/23 00:32 Urine WBC (Auto) 1-5 /hpf (0-5) 05/31/23 00:32 Urine RBC (Auto) >30 /hpf (0-4) H 05/31/23 00:32 U Hyaline Cast (Auto) 1-5 /lpf (0-5) 05/31/23 00:32 U Epithel Cells (Auto) 10-20 /lpf (0-5) H 05/31/23 00:32 Urine Bacteria (Auto) Negative (Negative) 05/31/23 00:32 Adenovirus (PCR) Not Detected (NotDetected) 05/30/23 20:47 B. pertussis DNA (PCR) Not Detected (NotDetected) 05/30/23 20:47 B.parapertussis DNA PCR Not Detected (NotDetected) 05/30/23 20:47 C. pneumoniae DNA (PCR) Not Detected (NotDetected) 05/30/23 20:47 Coronavirus OC43 (PCR) Not Detected (NotDetected) 05/30/23 20:47 Coronavirus HKU1 (PCR) Not Detected (NotDetected) 05/30/23 20:47 Coronavirus 229E (PCR) Not Detected (NotDetected) 05/30/23 20:47 SARS-CoV-2 (PCR) Not Detected (NotDetected) 05/30/23 20:47 Coronavirus NL63 (PCR) Not Detected (NotDetected) 05/30/23 20:47 Human Metapneumovir PCR Not Detected (NotDetected) 05/30/23 20:47 Influenza Type A (PCR) Not Detected (NotDetected) 05/30/23 20:47 Influenza Type B (PCR) Not Detected (NotDetected) 05/30/23 20:47 M. pneumoniae (PCR) Not Detected (NotDetected) 05/30/23 20:47 Parainfluenza 1 (PCR) Not Detected (NotDetected) 05/30/23 20:47 Parainfluenza 2 (PCR) Not Detected (NotDetected) 05/30/23 20:47 Parainfluenza 3 (PCR) Not Detected (NotDetected) 05/30/23 20:47 Parainfluenza 4 (PCR) Not Detected (NotDetected) 05/30/23 20:47 RSV (PCR) Not Detected (NotDetected) 05/30/23 20:47 Entero/Rhino (PCR) Not Detected (NotDetected) 05/30/23 20:47 Blood Type O Positive 05/30/23 23:02 Blood Type Recheck O Positive 05/30/23 23:10 Antibody Screen NEGATIVE 05/30/23 23:02 Crossmatch See Detail 05/30/23 23:[address] 05/30/23 22:36 CR Exam(s): CT HEAD Without Contrast EXAM: CT Head Without Intravenous Contrast CLINICAL HISTORY: Reason for exam: soares. TECHNIQUE: Axial computed tomography images of the head/brain without intravenous contrast. CTDI is 38.37 mGy and DLP is 1125.22 mGy-cm. Automated exposure control was utilized for the study. A dose lowering technique was utilized adhering to the principles of ALARA. Mild to moderate motion artifact. COMPARISON: None. FINDINGS: Brain: No mass effect or acute infarct. No acute hemorrhage. Ventricles: No hydrocephalus or midline shift. Bones/joints: No skull fracture. Soft tissues: No scalp hematoma. Sinuses: Clear. Mastoid air cells: No mastoid effusion. IMPRESSION: 1. No acute intracranial abnormality. 2. Normal exam, limited by motion artifact. Communications: Call Doctor Stroke Electronically signed by: Savanna Curry M.D. 05/31/23 00:08 AM Head CTA 05/30/23 22:36 CR Exam(s): CTA HEAD With Contrast IV Amt: 118 ML OPTIRAY 320 EXAM: CT Angiography Head With Intravenous Contrast CLINICAL HISTORY: Reason for exam: soares. TECHNIQUE: Axial computed tomographic angiography images of the head with intravenous contrast. CTDI is 38.37 mGy and DLP is 1125.22 mGy-cm. Automated exposure control was utilized for the study. A dose lowering technique was utilized adhering to the principles of ALARA. MIP reconstructed images were created and reviewed. Mild motion artifact. CONTRAST: Patient received 118 ML OPTIRAY 320 of IV contrast COMPARISON: None. FINDINGS: Right internal carotid artery: Patent. Right anterior cerebral artery: Patent. Right middle cerebral artery: Patent. Right posterior cerebral artery: Patent. Right vertebral artery: Patent. Right dominant system. Left internal carotid artery: Patent. Left anterior cerebral artery: Patent. Left middle cerebral artery: Patent. Left posterior cerebral artery: Patent. Left vertebral artery: Patent. Basilar artery: Patent. Other: IMPRESSION: 1. No aneurysm or large vessel occlusion. Communications: Call Doctor Stroke Electronically signed by: Savanna Curry M.D. 05/31/23 00:06 AM Neck CTA 05/30/23 22:36 CR Exam(s): CTA NECK With Contrast IV Amt: 118 ML OPTIRAY 320 EXAM: CT Angiography Neck With Intravenous Contrast CLINICAL HISTORY: Reason for exam: soares. TECHNIQUE: Routine carotid CT angiography protocol was performed with intravenous contrast. NASCET criteria using the distal ICAs for comparison were used for evaluation of stenoses. CTDI is 38.37 mGy and DLP is 1125.22 mGy-cm. Automated exposure control was utilized for the study. A dose lowering technique was utilized adhering to the principles of ALARA. MIP reconstructed images were created and reviewed. CONTRAST: Patient received 118 ML OPTIRAY 320 of IV contrast COMPARISON: None. FINDINGS: Right common carotid artery: Patent. Right internal carotid artery: Patent. Right vertebral artery: Patent. Left common carotid artery: Patent. Left internal carotid artery: Patent. Left vertebral artery: Patent. Other: No significant atherosclerosis or stenosis. IMPRESSION: 1. No dissection, occlusion, or significant stenosis. CAROTID STENOSIS REFERENCE USING NASCET CRITERIA: % ICA stenosis = (1 - narrowest ICA diameter/diameter of distal cervical ICA) x 100. Mild - <50% stenosis. Moderate - 50-69% stenosis. Severe - 70-94% stenosis. Near occlusion - 95-99% stenosis. Occluded - 100% stenosis. Communications: Call Doctor Stroke Electronically signed by: Savanna Curry M.D. 05/31/23 00:07 AM Abdomen/Pelvis CT 05/31/23 01:32 Exam(s): CT ABDOMEN + PELVIS Without Contrast EXAM: CT Abdomen and Pelvis Without Intravenous Contrast CLINICAL HISTORY: Reason for exam: low back pain, new pancytopenia. TECHNIQUE: Axial computed tomography images of the abdomen and pelvis without intravenous contrast. Automated exposure control was utilized for the study. A dose lowering technique was utilized adhering to the principles of ALARA. Mild to moderate breathing motion artifact. COMPARISON: None. FINDINGS: Lung bases: Clear. Liver: Unremarkable. Gallbladder and bile ducts: Cholelithiasis without acute cholecystitis. No ductal dilation. Pancreas: No ductal dilation. Spleen: Unremarkable. Adrenals: Unremarkable. Kidneys and ureters: Contrast in the collecting system from a prior study. No hydronephrosis. Stomach and bowel: Moderate fecal loading of the colon, with mild fecal impaction in the rectum. No diverticulosis or diverticulitis. No wall thickening or mesenteric edema. No obstruction. Appendix: No acute appendicitis. Intraperitoneal space: No free air or fluid. Bones/joints: No acute fracture. Soft tissues: Unremarkable. Vasculature: No aortic aneurysm. Lymph nodes: No enlarged lymph nodes. Bladder: No stones. Reproductive: Unremarkable as visualized. IMPRESSION: 1. No acute intra-abdominal or intrapelvic abnormality. 2. Fecal impaction in the rectum. 3. Incidental cholelithiasis. Electronically signed by: Savanna Curry M.D. 05/31/23 03:[address] 05/31/23 01:35 Exam(s): CT CHEST Without Contrast EXAM: CT Chest Without Intravenous Contrast CLINICAL HISTORY: Reason for exam: new pancytopenia, SOB. TECHNIQUE: Axial computed tomography images of the chest without intravenous contrast. Automated exposure control was utilized for the study. A dose lowering technique was utilized adhering to the principles of ALARA. Moderate breathing motion artifact. COMPARISON: None. FINDINGS: Lungs: Clear. No consolidation. Pulmonary arteries: No engorgement. Aorta: No thoracic aortic aneurysm. Pleural space: No effusion. No pneumothorax. Heart: Mild to moderate cardiomegaly. No significant pericardial effusion. Bones/joints: No acute fracture. Soft tissues: Small hiatal hernia. Lymph nodes: No enlarged lymph nodes. IMPRESSION: 1. No acute abnormality in the chest. 2. Small hiatal hernia and mild to moderate cardiomegaly. 3. No adenopathy, consolidation or pleural effusion. Electronically signed by: Savanna Curry M.D. 05/31/23 03:51 AM Code Status & VTE Plan Code Status Full code VTE Prophylaxis Plan VTE Prophylaxis will be ordered: Yes PG Care Time/CCT Total # of Minutes Spent Total Time Spent with Patient: Total time spent is greater than 50% in coordination of care (as documented) at patient's floor/unit and/or counseling patient: Coding Level of Care Code 20268 INT INP/OBS CARE 3/75MIN Diagnoses Pancytopenia D61.818 Depression with anxiety F41.8 Complex regional pain syndrome Esophageal reflux K21.9 Opiate use F11.90 Lumbar degenerative disc disease M51.36 Low back pain M54.50
[2023-05-31 02:09] LABS: Folate (Folic Acid),Ser orPlas > 22.30 ng/ml (>5.38)
[2023-05-31 02:10] LABS: Vitamin B12 115 pg/ml (180-914)
[2023-05-31 02:21] LABS: Ferritin 1463.4 ng/ml (8-388)
--- NOTE | 2023-05-31 03:52 | CT Scan Report ---
Exam(s): CT CHEST Without Contrast EXAM: CT Chest Without Intravenous Contrast CLINICAL HISTORY: Reason for exam: new pancytopenia, SOB. TECHNIQUE: Axial computed tomography images of the chest without intravenous contrast. Automated exposure control was utilized for the study. A dose lowering technique was utilized adhering to the principles of ALARA. Moderate breathing motion artifact. COMPARISON: None. FINDINGS: Lungs: Clear. No consolidation. Pulmonary arteries: No engorgement. Aorta: No thoracic aortic aneurysm. Pleural space: No effusion. No pneumothorax. Heart: Mild to moderate cardiomegaly. No significant pericardial effusion. Bones/joints: No acute fracture. Soft tissues: Small hiatal hernia. Lymph nodes: No enlarged lymph nodes. IMPRESSION: 1. No acute abnormality in the chest. 2. Small hiatal hernia and mild to moderate cardiomegaly. 3. No adenopathy, consolidation or pleural effusion. Electronically signed by: Savanna Curry M.D. 05/31/23 03:51 AM
--- NOTE | 2023-05-31 03:56 | CT Scan Report ---
Exam(s): CT ABDOMEN + PELVIS Without Contrast EXAM: CT Abdomen and Pelvis Without Intravenous Contrast CLINICAL HISTORY: Reason for exam: low back pain, new pancytopenia. TECHNIQUE: Axial computed tomography images of the abdomen and pelvis without intravenous contrast. Automated exposure control was utilized for the study. A dose lowering technique was utilized adhering to the principles of ALARA. Mild to moderate breathing motion artifact. COMPARISON: None. FINDINGS: Lung bases: Clear. Liver: Unremarkable. Gallbladder and bile ducts: Cholelithiasis without acute cholecystitis. No ductal dilation. Pancreas: No ductal dilation. Spleen: Unremarkable. Adrenals: Unremarkable. Kidneys and ureters: Contrast in the collecting system from a prior study. No hydronephrosis. Stomach and bowel: Moderate fecal loading of the colon, with mild fecal impaction in the rectum. No diverticulosis or diverticulitis. No wall thickening or mesenteric edema. No obstruction. Appendix: No acute appendicitis. Intraperitoneal space: No free air or fluid. Bones/joints: No acute fracture. Soft tissues: Unremarkable. Vasculature: No aortic aneurysm. Lymph nodes: No enlarged lymph nodes. Bladder: No stones. Reproductive: Unremarkable as visualized. IMPRESSION: 1. No acute intra-abdominal or intrapelvic abnormality. 2. Fecal impaction in the rectum. 3. Incidental cholelithiasis. Electronically signed by: Savanna Curry M.D. 05/31/23 03:55 AM
[2023-05-31] MEDS ORDERED: ACETAMINOPHEN 325 MG TAB PO PRN (04:51)
[2023-05-31] MEDS ORDERED: ONDANSETRON INJ 2 MG/ML 2 ML VIAL IV PRN (04:51)
[2023-05-31] MEDS: NSS + 20MEQ KCL 20 MEQ/1,000 ML BAG IV SCH (06:36)
--- NOTE | 2023-05-31 07:27 | Hospitalist Progress Note ---
Date of Service May 31, 2023 Assessment & Plan (1) Low back pain: (2) Lumbar degenerative disc disease: (3) Pancytopenia: (4) Depression with anxiety: Plan The patient presents to the emergency department with complaint of 3 weeks of right buttock/sacroiliac pain, had been given Celebrex by her PCP which caused sores and bleeding gums so she therefore stopped it. She noted also some transient blood in stool, which she thinks is related to hemorrhoid. She saw a chiropractor last week who did some neck adjustments, and reports that she has been sleeping a lot ever since. Due to progressive fatigue, she had gone to the [facility] emergency department last night, but could not stay because the wait was 4 hours long. She presents to the emergency department MRI of the knee this evening with primary concerns regarding fatigue and right sacroiliac/buttock pain Pancytopenia -No previous CBC with differential for comparison -WBC 1.47, hemoglobin 5.4, hematocrit 15.4, platelets 75 ANC 0.92 on arrival. Received 2 units PRBCs -Placed on neutropenic precautions -Patient to receive bone marrow biopsy with IR today, hematology/oncology consult placed for Dr. Tay -Will start prophylactic antibiotics with Levaquin, Bactrim, plus Diflucan an d Acyclovir -Hope to receive results from bone marrow biopsy on Sunday, may require transfer to [facility] if results confirm acute leukemia -Concerns regarding MDS versus myeloid leukemia based on peripheral smear -CT head, CTA head/neck negative. CT A/P, CT chest without significant findings Lumbar degenerative disc disease/low back pain/complex regional pain syndrome -Hold Celebrex -Continue hydrocodone as needed, IV Tylenol ordered Admission and Anticipated Discharge Date Admission Date: May 31, 2023 Supervising Physician Co-Signing Physician Notes Attending Physician Supervision Note: I independently interviewed and examined the patient and verified the ansari history and physical, reviewed labs and image studies and agree with findings and care plan noted above. Subjective Patient was seen and examined at bedside. She endorses nausea and right sided low back pain that will radiate into her hip/groin. Denies any chest pain, shortness of breath, or dizziness/lightheadedness. Endorses 8 pound weight loss in the past week and no appetite, also notes drenching night sweats and body aches- felt like she had the flu. Denies numbness/tingling down legs and no loss of bowel or bladder control. Review of Systems Review of Systems: As per above Physical Exam Constitutional: well nourished; no acute distress Eyes: + anicteric sclerae; no conjunctival abn ormality ENMT: Ears: no external ear abnormality Nose: no external nose abnormality moist mucous membranes Respiratory: normal respiratory effort, lungs clear to auscultation Cardiovascular: Rate/Rhythm: regular rate and regular rhythm Extremities: no edema Musculoskeletal: Pain with palpation of right sided lumbar paraspinal musculature Skin: no rashes, warm and dry Neurologic: no focal motor deficits Psychiatric: A+Ox3, euthymic affect Results & Data Results & Data Vital Signs (Past 12 Hours) Vital Signs Temp Pulse Pulse Resp BP BP Pulse Ox 05/31/23 06:30 37.3 C 103 H 26 H 128/79 97 05/31/23 06:00 37.4 C 100 H 17 128/79 97 05/31/23 05:30 37.6 C H 99 H 18 134/77 94 05/31/23 05:00 37.4 C 101 H 20 130/74 94 05/31/23 04:40 37.3 C 102 H 17 137/74 94 05/31/23 04:25 37.3 C 101 H 21 148/67 H 97 05/31/23 04:10 37.4 C 102 H 21 143/82 H 97 05/31/23 03:55 37.4 C 104 H 17 150/82 H 96 05/31/23 03:50 37.3 C 102 H 24 147/83 H 96 05/31/23 03:45 37.3 C 104 H 23 149/85 H 97 05/31/23 03:40 37.4 C 105 H 23 143/82 H 96 05/31/23 03:05 37.4 C 104 H 21 143/87 H 96 05/31/23 02:59 108 H 05/31/23 02:29 37.4 C 106 H 17 133/73 97 05/31/23 01:45 37.1 C 100 H 22 133/75 97 05/31/23 01:30 102 H 19 137/74 95 05/31/23 01:15 37.4 C 112 H 18 161/93 H 97 05/31/23 01:00 37.4 C 106 H 16 139/81 95 05/31/23 00:45 37.2 C 115 H 16 157/84 H 97 05/31/23 00:40 37.6 C H 105 H 17 138/80 95 05/31/23 00:35 37.5 C 107 H 16 141/77 H 95 05/31/23 00:30 109 H 18 141/77 H 95 05/31/23 00:28 37.5 C 114 H 17 153/82 H 98 05/31/23 00:00 102 H 17 124/76 97 05/30/23 22:43 113 H 137/80 97 05/30/23 22:32 104 H 05/30/23 20:44 36.7 C 121 H 19 158/74 H 98 O2 Del Method 05/31/23 06:30 05/31/23 06:00 05/31/23 05:30 05/31/23 05:00 05/31/23 04:40 05/31/23 04:25 05/31/23 04:10 05/31/23 03:55 05/31/23 03:50 05/31/23 03:45 05/31/23 03:40 05/31/23 03:05 05/31/23 02:59 05/31/23 02:29 05/31/23 01:45 05/31/23 01:30 05/31/23 01:15 05/31/23 01:00 05/31/23 00:45 05/31/23 00:40 05/31/23 00:35 05/31/23 00:30 05/31/23 00:28 05/31/23 00:00 Room Air 05/30/23 22:43 Room Air 05/30/23 22:32 05/30/23 20:44 Room Air Resident Activity Tracking Resident Involvement: Resident Care Provided Care Provided: Adult Hospital Medicine
--- NOTE | 2023-05-31 07:43 | XRay Report ---
SINGLE VIEW CHEST CLINICAL HISTORY: Illness. Generalized weakness. FINDINGS: A PA chest radiograph is obtained. No prior studies are available for comparison at the farhana e of dictation. The cardiomediastinal silhouette is unremarkable. There is mild elevation of left hem idiaphragm with associated atelectasis. The lungs and pleural spaces are otherwise clear. No pneumoth orax is seen. The bony thorax is grossly intact. Calcific tendinopathy is noted in the right shoulder . IMPRESSION: No active disease in the chest. ACT 112: Negative or not required by law. Electronically signed by: Manolo Meyer M.D. 05/31/2023 7:42 AM
[2023-05-31] MEDS: ACETAMINOPHEN 1,000 MG/100 ML VIAL IV STA (10:01)
[2023-05-31] MEDS: buPROPion SR 100 MG TABCR PO SCH (10:01)
--- OUTSIDE RECORDS SUMMARY | 2023-05-31 10:36 | External Medical Summary | Summary of Care ---
Author Name Unknown Organization [facility] Address [address] [place] [address] Phone [phone] Care Team Providers Care Pile Driving Technician Name Role Phone Vini Burkett MD Primary Care Provider [phone] Reason for Visit * Reason Onset Date Comments Appointment 04/30/2023 Encounter Details Date Type Department Care Team (Late st Contact Info) Description 04/30/2023 Telephone Nutrition & Weight Management, [facility] [address] [place] [address] Kota, Lorenzo No Resource [address] [place] [address] Appointment Allergies Active Allergy Reactions Criticality Noted Date Comments Paroxetine Hydrochloride 08/04/2009 Mental status changes documented as of this encounter (statuses as of 05/03/2023) Medications Medication Sig Dispensed Refills Start Date End Date Status TRINTELLIX 20 MG TABS 0 01/21/2019 Act sherie buPROPion XL (WELLBUTRIN XL) 300 MG TB24 0 12/12/2018 Active traZODone (DESYREL) 100 MG Tablet 0 01/13/2019 Active HYDROcodone-Acetaminop hen 7.5-325 MG per tablet TAKE 1 TO 2 TABLETS TWICE DAILY NEEDED FOR PAIN 0 01/10/2019 Active documented as of this encounter (statuses as of 05/03/2023) Active Problems Problem Noted Date Diagnosed Date PAROXYSMAL NS SVT 01/03/2006 ADVANCE DIRECTIVE INFORMATION 11/30/2004 Overview: No, Advance Directive brochure given to patient. OBESITY, UNSPECIFIED 06/18/2001 Family history of other cardiovascular diseases Overview: ICD-10 update of inactive term Bulimia documented as of this encounter (statuses as of 05/03/2023) Immunizations Name Administration Dates Next Due TDAP (age 11 and older)(Adacel) 04/18/2010 documented as of this encounter Social History Tobacco Use Types Packs/Day Years Used Date Smoking Tobacco: Former Cigarettes Q uit: 02/26/2011 Smokeless Tobacco: Never Alcohol Use Standard Drinks/Week Comments No 0 (1 standard drink = 0.6 oz pur e alcohol) Sex and Gender Information Value Date Recorded Sex Assigned at Not on file Gender Identity Not on file Sexual Orientation Not on file Job Start Date Occupation Industry Not on file Not on file Not on file documented as of this encounter Miscellaneous Notes * Telephone Encounter - Milly Yo OSA - 05/03/2023 3:51 PM EST Lmm VIMAL Grant 05/03/2023 3:51 PM * Telephone Encounter - Garima Martínez OSA - 04/30/2023 1:34 PM EST Referral received on 04/30/23 DX: Obesity, unspecified. Referring provider: Vini Burkett to schedule. documented in this encounter Plan of Treatment Health Maintenance Due Date Last Done Comments Depression Screening 1980 HIV Screening 1983 Hepatitis C Screening 1986 Hepatitis B (1 of 3 - 19+ 3-dose series) 1987 Cologuard 2013 Colonoscopy 2013 Colorectal Cancer Screening 2013 Fecal Occult Blood Test 2013 Sigmoidoscopy 2013 Lipid Panel 08/04/2014 08/04/2009, 06/26/2001 Zoster Vaccines (1 of 2) 2018 DTaP,Tdap,and Td Vaccines (2 - Td or Tdap) 04/18/2020 04/18/2010 Mammogram 12/22/2021 12/22/2020, 02/27, 07/05/2001 COVID-19 Vaccine ( season) 2022 Influenza Vaccine (FLU shot) (#1) 2022 Diabetes Screening 09/06/2024 09/06/2021, 0 07/24/2014, 08/04/2009, Additional history exists GARDASIL-HPV IMMUNIZATION SERIES Aged Out No longer eligible based on patient's age to complete this topic MENINGOCOCCAL (MENACTRA/MENVEO) Aged Out No longer eligible based on patient's age to complete this topic Pneumococcal Vaccine: Pediatrics (0 to 5 Years) and At-Risk Patients (6 to 64 Years) Aged Out No longer eligible based on patient's age to complete this topic documented as of this encounter Medical Devices Implanted Type Area Bridge Design Engineer Device Identifier Shelf Expiration Date Model / Serial / Lot Corkscrew Bio Composite - [id number] Implanted:Qty: 2 on 07/29/2014 by Jeet Tanner MD at OR [facility] Right: Shoulder [employer] 01/27/2016 [id number] / / [id number] Suture [place], Biocomposite Push Lck Implanted:Qty: 2 on 07/29/2014 by Jeet Tanner MD at OR [facility] Right: Shoulder [employer] 03/29/2016 [id number] / / Fiberwire Implanted:Qty: 1 on 07/29/2014 by Jeet Tanner MD at OR [facility] Right: Shoulder [employer] 07/27/2018 / / [id number] documented as of this encounter Care Teams Pile Driving Technician Relationship Specialty Start Date End Date Vini Burkett MD PCP - General Family Medicine 02/24/14 documented as of this encounter
--- OUTSIDE RECORDS SUMMARY | 2023-05-31 10:36 | External Medical Summary | Summary of Care ---
Author Name Unknown Organization [facility] Address [address] [place] [address] Phone [phone] Care Team Providers Care Animal Pathology Teacher Name Role Phone Vini Burkett MD Primary Care Provider [phone] Reason for Visit * Reason Onset Date Comments Appointment 04/30/2023 Encounter Details Date Type Department Care Team (Late st Contact Info) Description 04/30/2023 Telephone Nutrition & Weight Management, [facility] [address] [place] [address] Kota, Lorenzo No Resource [address] [place] [address] Appointment Allergies Active Allergy Reactions Criticality Noted Date Comments Paroxetine Hydrochloride 08/04/2009 Mental status changes documented as of this encounter (statuses as of 05/10/2023) Medications Medication Sig Dispensed Refills Start Date End Date Status TRINTELLIX 20 MG TABS 0 01/21/2019 Act sherie buPROPion XL (WELLBUTRIN XL) 300 MG TB24 0 12/12/2018 Active traZODone (DESYREL) 100 MG Tablet 0 01/13/2019 Active HYDROcodone-Acetaminop hen 7.5-325 MG per tablet TAKE 1 TO 2 TABLETS TWICE DAILY NEEDED FOR PAIN 0 01/10/2019 Active documented as of this encounter (statuses as of 05/10/2023) Active Problems Problem Noted Date Diagnosed Date PAROXYSMAL NS SVT 01/03/2006 ADVANCE DIRECTIVE INFORMATION 11/30/2004 Overview: No, Advance Directive brochure given to patient. OBESITY, UNSPECIFIED 06/18/2001 Family history of other cardiovascular diseases Overview: ICD-10 update of inactive term Bulimia documented as of this encounter (statuses as of 05/10/2023) Immunizations Name Administration Dates Next Due TDAP [...] Telephone Encounter - Milly Yo OSA - 05/10/2023 11:04 AM EDT Letter sent VIMAL Grant 05/10/2023 11:05 AM * Telephone Encounter - Milly Yo OSA [...] Mammogram 12/22/2021 12/22/2020, 02/27, 07/05/2001 COVID-19 Vaccine (1 - 2022- season) 2022 Influenza Vaccine (FLU shot) (#1) [...] this encounter Medical Devices Implanted Type Area Morning Babysitter Device Identifier Shelf Expiration Date Model / Serial / Lot DeniseDering Hall Bio Composite - [id number] Implanted:Qty: 2 on 07/29/2014 by Jeet Tanner MD at OR [facility] Right: Shoulder [employer] 01/27/2016 [id number]-1927BCF / / [id number] Suture [place], Biocomposite Push Lck Implanted:Qty: 2 on 07/29/2014 by Jeet Tanner MD at OR [facility] Right: Shoulder [employer] 03/29/2016 AR-[id number] / / Fiberwire Implanted:Qty: 1 on 07/29/2014 by Jeet Tanner MD at OR [facility] Right: Shoulder [employer] 07/27/2018 / / [id number] documented as of this encounter Care Teams Animal Pathology Teacher Relationship Specialty Start Date End Date Vini Burkett MD PCP - General Family Medicine 02/24/14 documented as of this encounter
[2023-05-31] MEDS ORDERED: SENNA 8.6 MG TAB PO PRN (10:40)
[2023-05-31 10:44] LABS: Hematocrit (blood only) 22.5 % (37.0-47.0); Hemoglobin 8.1 g/dl (12.0-16.0); Mean Corpuscular Hemoglobin 33.9 pg (25.0-34.0); Mean Corpuscular Volume 94.1 fL (80.0-100.0); Mean Platelet Volume 10.7 fL (9.4-12.4); Platelet Count 59 K/uL (130-400); RDW Coefficient of Variation 17.2 % (11.5-14.5); RDW Standard Deviation 57.8 fL (36.4-46.3); Red Blood Count 2.39 M/uL (4.20-5.40); White Blood Count 1.16 K/ul (4.8-10.8)
[2023-05-31] MEDS: CYANOCOBALAMIN 1000 MCG/ML VIAL IM SCH (11:17)
--- OUTSIDE RECORDS SUMMARY | 2023-05-31 12:19 | External Medical Summary | Summary of Care ---
Author Name Unknown Organization [facility] Address [address] [place] [address] Phone [phone] Care Team Providers Care Banbury Operator Name Role Phone Vini Burkett MD Primary Care Provider [phone] Reason for Visit * Reason Comments Pain * Auth/Cert Specialty Diagnoses / Procedures Referred By Trey t Referred To Contact [facility] [address] [place] [address] Phone: [phone] Emergency Medicine [facility] [address] [place] [address] Referral ID Status Reason Start Date Expiration Date Visits Re quested Visits Authorized [id number] Encounter Details Date Type Department Care Team (Late st Contact Info) Description 05/30/2023 12:33 AM EDT - 05/30/2023 3:32 AM EDT Emergency [facility] Emergency Department ([facility]) [address] [place] [address] Haider Garsia, [address], [place] [id number] Discharge Disposition: Left ED Without Being Seen Allergies Active Allergy Reactions Criticality Noted Date Comments Paroxetine Hydrochloride 08/04/2009 Mental status changes documented as of this encounter (statuses as of 05/30/2023) Medications Medication Sig Dispensed Refills Start Date End Date Status TRINTELLIX 20 MG TABS 0 01/21/2019 Act sherie buPROPion XL (WELLBUTRIN XL) 300 MG TB24 0 12/12/2018 Active traZODone (DESYREL) 100 MG Tablet 0 01/13/2019 Active HYDROcodone-Acetaminop hen 7.5-325 MG per tablet TAKE 1 TO 2 TABLETS TWICE DAILY NEEDED FOR PAIN 0 01/10/2019 Active documented as of this encounter (statuses as of 05/30/2023) Active Problems Problem Noted Date Diagnosed Date PAROXYSMAL NS SVT 01/03/2006 ADVANCE DIRECTIVE INFORMATION 11/30/2004 Overview: No, Advance Directive brochure given to patient. OBESITY, UNSPECIFIED 06/18/2001 Family history of other cardiovascular diseases Overview: ICD-10 update of inactive term Bulimia documented as of this encounter (statuses as of 05/30/2023) Immunizations Name Administration Dates Next Due TDAP [...] on file documented as of this encounter Last Filed Vital Signs Vital Sign Reading Time Taken Comments Blood Pressure 148/78 05/30/2023 3:00 AM EDT Pulse 127 05/30/2023 3:00 AM EDT Temperature 36.4 C (97.5 F) 05/30/2023 12:38 AM E DT Respiratory Rate 22 05/30/2023 3:00 AM EDT Oxygen Saturation 99% 05/30/2023 1:36 AM EDT Inhaled Oxygen Concentration - - Weight 90.7 kg (200 lb) 05/30/2023 12:38 AM EDT Height 162.6 cm (5' 4") 05/30/2023 12:38 AM EDT Body Mass Index 34.33 05/30/2023 12:38 AM EDT documented in this encounter ED Notes * Flory Morrow RN - 05/30/2023 12:35 AM EDT Pt states that she started with right lower back pain a few weeks ago, states that it radiated downher RLE. Pt states that she was started on Celebrex but had side effects from it. States that she is still having this pain tonight. Pt states that she tried going to the chiropractor, states that after that she began getting intermittent headaches and has a "swooshing" sound in her ears. Pt statesthat she is having difficulty getting to of bed in the morning due to weakness, states that after awhile it does improve in the mornings. Pt states that she takes hydrocodone at baseline for pain, last dose 1-2 hours ago. documented in this encounter Miscellaneous Notes * ED Software Manager Note - Maritza Silva RN - 05/30/2023 1:59 AM EDT Patient presents to the ED for multiple complaints. Per patient she has been having back pain in her right lower back that started about 2.5-3 weeks ago. Patient was given Celebrex by her PCP for this. Patient stopped the Celebrex after a couple of days due to the inside of her mouth being raw. Patient states that the pain in her back radiates down her right leg. Patient denies numbness and tingling. Per patient she went to the chiropractor on 05/22 due to the continues back pain. The chiropractor adjusted something in her neck and after that appointment she developed headaches and a "swishing" in her ears. Patient states that she has been in bed , Sunday, Sunday, Sunday and Sundaydue to these issues. Per patient she is tired of waiting for the back pain to improve. Patient alsowith complaints of "hot and cold sweats" patient states that these started after her appointment with the chiropractor. Patient also with a slight cough, states that she was around someone that was sick with a virus. Patient also with intermitted nausea, denies vomiting. Denies loss of bowel and bladder function. Patient also concerned for a rectal hemorrhoid that was not present prior to this. Patient alert and oriented, respirations equal and unlabored, positive pulse, motor, sensation and capillary refill to the bilateral lower extremities. Patient would like to leave facility due to not being seen by the doctor. Patient ambulated from the unit with a strong and steady gait with all belongings. documented in this encounter Plan of Treatment [...] 12/22/2021 12/22/2020, 02/27, 07/05/2001 COVID-19 Vaccine ( - season) 2022 09/27/2020, 09/03/2020 Influenza Vaccine (FLU shot) (Season Ended) 2023 Diabetes Screening 09/06/2024 09/06/2021, 0 07/24/2014, 08/04/2009, [...] this encounter Medical Devices Implanted Type Area Tape Weaver Device Identifier Shelf Expiration Date Model / Serial / Lot Harsha Bio Composite - [id number] Implanted:Qty: 2 on 07/29/2014 by Jeet Tanner MD at OR [facility] Right: Shoulder [employer] 01/27/2016 AR-1927BCF / / [id number] Suture [place], Biocomposite Push Lck Implanted:Qty: 2 on 07/29/2014 by Jeet Tanner MD at OR [facility] Right: Shoulder [employer] 03/29/2016 AR-1922BC / / Fiberwire Implanted:Qty: 1 on 07/29/2014 by Jeet Tanner MD at OR [facility] Right: Shoulder [employer] 07/27/2018 / / [id number] documented as of this encounter Care Teams Banbury Operator Relationship Specialty Start Date End Date Vini Burkett MD [address] [facility] [place] [address] PCP - General Family Medicine 02/24/14 documented as of this encounter
[2023-05-31 12:44] LABS: ALC (manual) 0.99 K/uL (1.2-3.4); ANC (manual) 0.12 K/uL (1.4-6.5); Blast # (manual) 0.06 K/uL (0-0); Blast Cells % (manual) 5 %; Lymphocytes # (manual) 0.99 K/uL (1.2-3.4); Lymphocytes % (manual) 85 %; Neutrophils # (manual) 0.12 K/uL (1.40-6.50); Neutrophils % (manual) 10 %; Tear Drop Cells 1+
[2023-05-31] MEDS: fentaNYL citrate PF 100 MCG/2 ML VIAL ONE (12:52)
--- NOTE | 2023-05-31 14:19 | CT Scan Report ---
CT-GUIDED BONE MARROW BIOPSY CLINICAL HISTORY: Pancytopenia PROCEDURE: Procedure and risks were explained. Informed consent was obtained. A final timeout was com pleted. The patient was placed prone on the CT exam table. The left gluteal region was prepped and dr aped in sterile fashion. 1% buffered lidocaine was utilized for skin anesthesia. Utilizing CT guidance, an 11-gauge bone biopsy needle was advanced into the left iliac bone. Multiple aspirates and one bone core was obtained and given to the lab. The needle was removed and Band-Aid a pplied. The patient tolerated the procedure well. Vital signs will be monitored postprocedure. IMPRESSION: CT-guided bone marrow biopsy as above. Performed, dictated, and signed by Remigio Rodas PA-C; to be co-signed by Dr. Manolo Meyer. Electronically signed by: Manolo Meyer M.D. 05/31/2023 2:26 PM
--- NOTE | 2023-05-31 16:21 | Oncology Consultation ---
Date of Consultation May 31, 2023 Assessment & Plan (1) Pancytopenia: I had a very detailed discussion with the patient as well as the primary hospital internal medicine 3. At this point my concerns are related to an underlying chemotherapy picture given the high percentage of circulating blasts in the peripheral blood. I have recommended for marrow biopsy. As soon as the bone marrow biopsy results are available and if the preliminary diagnosis points towards greater than 20% blasts in the peripheral blood, I will recommend transfer to tertiary care center such as [place] for consideration of appropriate leukemia directed therapy. Till then I will recommend supportive care. For supportive care I would recommend transfusion parameters. Transfuse packed red blood cells if hemoglobin is less than 7 g/dL or less than 8 g/dL if the patient is symptomatic/hemodynamically unstable She has platelets of less than 10 or if the patient is actively bleeding. Given the severe neutropenia would recommend prophylactic antibiotics, Levaquin 500 milligrams p.o. daily, acyclovir 400 mg twice daily, Fluconazole 100 mg p.o. daily. Plan Thank you for this interesting hematological consult. A total of 60 minutes were spent in counseling, coordination of care and review of prior records. This case was discussed in detail with the patient's primary hospital internal medicine team. Hematology will continue to follow the patient and make appropriate recommendations. History of Present Illness Reason for Consultation: Pancytopenia ? Acute leukemia Attending Physician: Holly Queen MD History of Present Illness Patient is a very pleasant 53-year-old woman who was feeling tired and fatigued over the last 3 to 4 weeks which has been progressive. She has lost weight, her appetite has been poor. She presented to [facility] where basic blood work was done including a CBC which revealed profound neutropenia with ANC less than 500, macrocytic anemia and thrombocytopenia. There were 6% circulating blasts in the peripheral blood. Hematology has been consulted to assist in management of this patient with possible underlying bone marrow failure. Leukemia. Allergies Allergy/AdvReac Type Severity Reaction Status Date / Time tapentadol [From Nucynta] Allergy Verified 04/25/23 09:11 tramadol Allergy Verified 04/25/23 09:11 Home Medications Medication Instructions Recorded Confirmed Type bupropion HCl 200 mg tablet,12 hr 200 mg PO BID #180 ea 04/25/23 05/30/23 Rx sustained-release (Wellbutrin SR) celecoxib 200 mg capsule (Celebrex) 200 mg PO DAILY PRN pain #30 caps 04/25/23 05/30/23 Rx hydrocodone 7.5 mg-acetaminophen 1 - 2 tab PO BID PRN pain #120 tabs 05/25/23 05/30/23 Rx 325 mg tablet Patient History Medical History Complex regional pain syndrome Esophageal reflux Neuropathic pain Neuropathy, axillary nerve Opiate use Peripheral neuropathy Insomnia Vitamin D deficiency Depression Complex regional pain syndrome i of right upper limb delivery delivered Rotator cuff tear Surgical History History of appendectomy History of endometrial ablation History of hysterectomy for benign disease History of arthroscopy of right shoulder Family History Father Diabetes Hypertension Hypercholesteremia Stroke Lung cancer Mother Hypertension Cancer Hypercholesteremia Ovarian cancer, Onset Age: 28 Still alive at age 71 Dementia Sister Hypertension Brother Hypertension Social History Smoking Status: Former smoker Tobacco Type: Cigarettes Cigarettes Per Day: 5 cigarettes a day; Second Hand Exposure: No; Do You Dip or Chew Tobacco: No; Hx Alcohol Use: No Hx Substance Use: No Preferred Language: Togolese Communication Ability: Effective 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 Beliefs That Will Affect Care: None marital status: Current Living Situation: Other Current Living Situation Comment: Lives with boyfriend current occupational status: disabled Feels Safe at Home: Yes Physical Activity Frequency: Does not Exercise Seatbelt Use: always Assistive Devices: None Review of Systems Review of Systems: All systems reviewed & are unremarkable except as noted in HPI & below Constitutional: as per Subjective / HPI Eyes: as per Subjective / HPI Ear, Nose, Mouth, Throat: as per Subjective / HPI Respiratory: as per Subjective / HPI Cardiovascular: as per Subjective / HPI Gastrointestinal: as per Subjective / HPI Genitourinary: as per Subjective / HPI Musculoskeletal: as per Subjective / HPI Neurologic: as per Subjective / HPI Psychiatric: as per Subjective / HPI Physical Exam Constitutional: WD/WN, vitals as above Eyes: PERRL, conjunctivae normal, anicteric sclerae ENMT: external ear and nose normal, oropharynx normal Neck: trachea midline, no thyromegaly Respiratory: normal respiratory effort, lungs clear to auscultation Cardiovascular: RRR, no murmur, no edema Gastrointestinal (Abdomen): normal bowel sounds, soft, nontender, no hepatosplenomegaly Musculoskeletal: no cyanosis or clubbing, extremities motor strength 5/5 Skin: no rashes, warm and dry Results & Data Vital Signs (Past 12 Hours) Vital Signs Temp Pulse Pulse Resp BP BP Pulse Ox 05/31/23 15:27 37.1 C 98 H 17 132/80 97 05/31/23 14:38 37.0 C 95 H 18 143/85 H 97 05/31/23 13:58 36.8 C 98 H 18 129/75 96 05/31/23 13:20 37.1 C 101 H 18 134/73 96 05/31/23 13:03 37.2 C 98 H 18 136/80 96 05/31/23 10:55 37.1 C 99 H 20 136/75 96 05/31/23 08:12 38.1 C H 106 H 18 135/67 96 05/31/23 07:27 98 H 18 127/83 95 05/31/23 06:30 37.3 C 103 H 26 H 128/79 97 05/31/23 06:00 37.4 C 100 H 17 128/79 97 05/31/23 05:30 37.6 C H 99 H 18 134/77 94 05/31/23 05:00 37.4 C 101 H 20 130/74 94 05/31/23 04:40 37.3 C 102 H 17 137/74 94 05/31/23 04:25 37.3 C 101 H 21 148/67 H 97 O2 Del Method 05/31/23 15:27 Room Air 05/31/23 14:38 Room Air 05/31/23 13:58 Room Air 05/31/23 13:20 Room Air 05/31/23 13:03 Room Air 05/31/23 10:55 Room Air 05/31/23 08:12 Room Air 05/31/23 07:27 Room Air 05/31/23 06:30 05/31/23 06:00 05/31/23 05:30 05/31/23 05:00 05/31/23 04:40 05/31/23 04:25
[2023-05-31] MEDS: levoFLOXacin 500 MG TAB PO STA (17:17)
[2023-05-31] MEDS: FLUCONAZOLE 100 MG TAB PO SCH (17:28)
[2023-05-31] MEDS: ACYCLOVIR 400 MG TAB PO SCH (20:08)
[2023-05-31] MEDS: POLYETHYLENE (MIRALAX) 17 GM PACK PO PRN (20:25)
[2023-05-31] MEDS: HYDROCODONE/ACETAMINOPHEN 7.5/325MG TAB PO PRN (20:25)
[2023-06-01 04:34] LABS: Albumin Level 3.7 gm/dl (3.4-5.0); BUN Creatinine Ratio 27.5 (10-20); Calcium 8.5 mg/dl (8.6-10.3); Creatinine Clr Calc Pharmacy 98.9 ml/min; Est GFR (African American) 113.6 ml/min; Magnesium 2.2 mg/dl (1.7-2.4); Potassium 4.4 mmol/L (3.5-5.1)
[2023-06-01 05:05] LABS: Hematocrit (blood only) 21.3 % (37.0-47.0); Hemoglobin 7.4 g/dl (12.0-16.0); Mean Corpuscular Hgb Conc 34.7 g/dL (32.0-36.0); Mean Corpuscular Volume 95.1 fL (80.0-100.0); Mean Platelet Volume 10.5 fL (9.4-12.4); Platelet Count 58 K/uL (130-400); RDW Coefficient of Variation 17.5 % (11.5-14.5); Red Blood Count 2.24 M/uL (4.20-5.40); White Blood Count 0.87 K/ul (4.8-10.8)
[2023-06-01 05:08] LABS: ALC (manual) 0.74 K/uL (1.2-3.4); ANC (manual) 0.04 K/uL (1.4-6.5); Blast # (manual) 0.09 K/uL (0-0); Blast Cells % (manual) 10 %; Lymphocytes # (manual) 0.74 K/uL (1.2-3.4); Lymphocytes % (manual) 85 %; Neutrophils # (manual) 0.04 K/uL (1.40-6.50); Neutrophils % (manual) 5 %; Tear Drop Cells 1+
--- NOTE | 2023-06-01 09:48 | Hospitalist Progress Note ---
Date of Service June 01, 2023 Assessment & Plan (1) Low back pain: (2) Lumbar degenerative disc disease: (3) Pancytopenia: (4) Depression with anxiety: Plan The patient presents to the emergency department with complaint of 3 weeks of right buttock/sacroiliac pain, had been given Celebrex by her PCP which caused sores and bleeding gums so she therefore stopped it. She noted also some transient blood in stool, which she thinks is related to hemorrhoid. She saw a chiropractor last week who did some neck adjustments, and reports that she has been sleeping a lot ever since. Due to progressive fatigue, she had gone to the [place] emergency department last night, but could not stay because the wait was 4 hours long. She presents to the emergency department MRI of the knee this evening with primary concerns regarding fatigue and right sacroiliac/buttock pain Pancytopenia -No previous CBC with differential for comparison -WBC 1.47, hemoglobin 5.4, hematocrit 15.4, platelets 75 ANC 0.92 on arrival. Received 2 units PRBCs -Placed on neutropenic precautions -Patient to receive bone marrow biopsy with IR today, hematology/oncology consult placed for Dr. Tay -Will start prophylactic antibiotics with Levaquin, Bactrim, plus Diflucan an d Acyclovir -Hope to receive results from bone marrow biopsy on Sunday, may require transfer to [facility] if results confirm acute leukemia -Concerns regarding MDS versus myeloid leukemia based on peripheral smear -CT head, CTA head/neck negative. CT A/P, CT chest without significant findings Lumbar degenerative disc disease/low back pain/complex regional pain syndrome -Hold Celebrex -Continue hydrocodone as needed, IV Tylenol ordered Admission and Anticipated Discharge Date Admission Date: May 31, 2023 Subjective Patient seen at the bedside doing well today. No acute complaints or overnight events. Review of Systems Review of Systems: As per above Physical Exam Constitutional: WD/WN, vitals as above Eyes: PERRL, conjunctivae normal, anicteric sclerae Respiratory: normal respiratory effort Skin: no rashes, warm and dry Psychiatric: A+Ox3, euthymic affect Results & Data Results & Data Vital Signs (Past 12 Hours) Vital Signs Temp Pulse Pulse Resp BP Pulse Ox O2 Del Method 06/01/23 08:00 93 H 06/01/23 07:31 37.0 C 95 H 20 135/77 97 Room Air 06/01/23 03:12 36.9 C 90 20 135/72 96 Room Air 06/01/23 00:48 90 05/31/23 23:12 36.9 C 91 H 20 124/78 96 Room Air
--- NOTE | 2023-06-01 09:58 | Hematology/Oncology Prog Note ---
Date of Service June 01, 2023 Assessment & Plan (1) Pancytopenia: Plan: I briefly reviewed the bone marrow biopsy with the pathologist Dr. Flory Nur. 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 Discussed this with the patient as well as the hospital internal medicine team. I have recommended transfer to a tertiary center like [facility] for her care regarding acute leukemia. This was discussed in detail with the patient explaining what may come going forward is intensive chemotherapy with an induction regimen followed by consolidation. For this I would recommend transfer to [facility]. Plan Hematology will continue to follow the patient and make appropriate recommendations. Please feel free to reach out to us for any further questions. Admission and Anticipated Discharge Date Admission Date: May 31, 2023 Subjective Currently doing well symptoms. No fever chills or night sweats. No vomiting. She has been started on prophylactic antibiotics. Review of Systems Review of Systems: All systems reviewed & are unremarkable except as noted in HPI & below Constitutional: as per Subjective / HPI Eyes: as per Subjective / HPI Ear, Nose, Mouth, Throat: as per Subjective / HPI Respiratory: as per Subjective / HPI Cardiovascular: as per Subjective / HPI Gastrointestinal: as per Subjective / HPI Genitourinary: as per Subjective / HPI Musculoskeletal: as per Subjective / HPI Integumentary: as per Subjective / HPI Physical Exam Constitutional: WD/WN, vitals as above Eyes: PERRL, conjunctivae normal, anicteric sclerae ENMT: external ear and nose normal, oropharynx normal Neck: trachea midline, no thyromegaly Respiratory: normal respiratory effort, lungs clear to auscultation Cardiovascular: RRR, no murmur, no edema Gastrointestinal (Abdomen): normal bowel sounds, soft, nontender, no hepatosplenomegaly Results & Data Vital Signs (Past 12 Hours) Vital Signs Temp Pulse Pulse Resp BP Pulse Ox O2 Del Method 06/01/23 08:00 93 H 06/01/23 07:31 37.0 C 95 H 20 135/77 97 Room Air 06/01/23 03:12 36.9 C 90 20 135/72 96 Room Air 06/01/23 00:48 90 05/31/23 23:12 36.9 C 91 H 20 124/78 96 Room Air
[2023-06-01] MEDS: levoFLOXacin 500 MG TAB PO SCH (11:23)
--- NOTE | 2023-06-01 12:10 | Discharge Summary ---
Date of Service June 01, 2023 Admission HPI Per Admitting Provider The patient is a 53-year-old female with a past medical history including depression with anxiety, lumbar degenerative disc disease, complex regional pain syndrome with chronic right shoulder pain, GERD, neuropathy, long-term opiate use. The patient presents to the emergency department as noted above. Admission Exam Per Admitting Provider The patient is awake, alert and oriented 3, well developed and well nourished, normocephalic and atraumatic, lying in bed and in no acute distress. HEENT--PERRL, EOMI, mucous membranes and oropharynx dry. Neck--supple. No JVD. No bruits. Thyroid normal, trachea midline, no adenopathy. Heart--normal S1 and S2. No murmurs, rubs or gallops. Lungs--clear bilaterally, no respiratory distress, no accessory muscle use. Abdomen--normal bowel sounds and soft. Nontender. Nondistended, no hernias or masses, no organomegaly. Extremities-- No edema. Dermatologic--normal skin turgor, normal color, no abnormal lymph nodes, no rash. Neurologic--cranial nerves II through XII grossly intact. Rheumatologic--mild reproducible pain over right lower lumbar and sacroiliac area Psychiatric--normal affect. Principal Diagnosis Pancytopenia Discharge Exam Constitutional WD/WN, vitals as above Eyes PERRL, conjunctivae normal, anicteric sclerae Respiratory normal respiratory effort, lungs clear to auscultation Cardiovascular RRR, no murmur, no edema Gastrointestinal (Abdomen) normal bowel sounds, soft, nontender, no hepatosplenomegaly Skin no rashes, warm and dry Psychiatric A+Ox3, euthymic affect Discharge Data Allergies Allergy/AdvReac Type Severity Reaction Status Date / Time tapentadol [From Nucynta] Allergy Verified 04/25/23 09:11 tramadol Allergy Verified 04/25/23 09:11 Consultations 05/31/23 00:32 ED Decision to Admit Stat 05/31/23 01:54 Consult Hematology Routine 06/01/23 11:00 Radiology Transfer Of Images Stat Ordered Studies 05/30/23 22:36 CT angio head w con Stat IMPRESSION: 1. No dissection, occlusion, or significant stenosis. CT angio neck with con Stat IMPRESSION: 1. No aneurysm or large vessel occlusion. CT head/brain wo con Stat IMPRESSION: 1. No acute intracranial abnormality. 2. Normal exam, limited by motion artifact. 05/31/23 01:32 CT Abd and Pelvis [CT abd pelvis wo con] Stat IMPRESSION: 1. No acute intra-abdominal or intrapelvic abnormality. 2. Fecal impaction in the rectum. 3. Incidental cholelithiasis. 05/31/23 01:35 CT chest without contrast [CT chest diagnostic wo con] Stat IMPRESSION: 1. No acute abnormality in the chest. 2. Small hiatal hernia and mild to moderate cardiomegaly. 3. No adenopathy, consolidation or pleural effusion. 05/31/23 12:15 IR bone marrow bx & asp Routine Hospital Course (1) Low back pain: (2) Lumbar degenerative disc disease: (3) Pancytopenia: (4) Depression with anxiety: Plan The patient presents to the emergency department with complaint of 3 weeks of right buttock/sacroiliac pain, had been given Celebrex by her PCP which caused sores and bleeding gums so she therefore stopped it. She noted also some transient blood in stool, which she thinks is related to hemorrhoid. She saw a chiropractor last week who did some neck adjustments, and reports that she has been sleeping a lot ever since. Due to progressive fatigue, she had gone to the [facility], but could not stay because the wait was 4 hours long. She presents to the emergency department MRI of the knee with primary concerns regarding fatigue and right sacroiliac/buttock pain. Blood work showed pancytopenia and 6% blast cells, bone biopsy obtained and preliminary read showed acute leukemia. She was recommended to go to tertiary facility and was transferred to [facility]. Pancytopenia -WBC 1.47, hemoglobin 5.4, hematocrit 15.4, platelets 75 ANC 0.92 on arrival. -Blast cells 6% on peripheral smear. -CT head, CTA head/neck negative. CT A/P, CT chest without significant findings -On day of transfer - WBC 0.87, Hgb 7.4, platelet 58, neutrophil 0.04, Blast 0.09. -Received 2 units PRBCs -started prophylactic antibiotics with Levaquin 500mg daily, plus Diflucan 100mg daily, and Acyclovir 400mg BID -Underwent bone marrow biopsy -Bone marrow biopsy showed blast cells up to 90%. Official read pending. -Contacted [facility] for Transfer per Heme/onc here. Dr. Morrow accepting physician, patient to be transferred when transport arrives. Lumbar degenerative disc disease/low back pain/complex regional pain syndrome -Hold Celebrex -Continue hydrocodone as needed, IV Tylenol Total Time Total Time Spent Total Time Spent (In Minutes): Please see attending attestation. Discharge Plan Discharge Items Patient Disposition: Transfer Acute Care Hospital Reason For Visit: PANCYTOPENIA Discharge Diagnosis: Pancytopenia Activity: Per Instructions section Non-emergency contact: Primary Care Provider and Oncologist Call non-emergency contact if: your symptoms worsen, your pain is worsening and your temperature is above 101 Follow-up/Referrals: Vini Burkett MD [Primary Care Provider] - Diet: Regular Addtl Attending Provider Instructions: The patient presents to the emergency department with complaint of 3 weeks of right buttock/sacroiliac pain, had been given Celebrex by her PCP which caused sores and bleeding gums so she therefore stopped it. She noted also some transient blood in stool, which she thinks is related to hemorrhoid. She saw a chiropractor last week who did some neck adjustments, and reports that she has been sleeping a lot ever since. Due to progressive fatigue, she had gone to the [facility], but could not stay because the wait was 4 hours long. She presents to the emergency department MRI of the knee with primary concerns regarding fatigue and right sacroiliac/buttock pain. Blood work showed pancytopenia and 6% blast cells, bone biopsy obtained and preliminary read showed acute leukemia. She was recommended to go to tertiary facility and was transferred to [facility]. Pancytopenia -No previous CBC with differential for comparison -WBC 1.47, hemoglobin 5.4, hematocrit 15.4, platelets 75 ANC 0.92 on arrival. Received 2 units PRBCs -Blast cells 6% on peripheral smear. -Placed on neutropenic precautions -Will start prophylactic antibiotics with Levaquin 500mg daily, plus Diflucan 100mg daily, and Acyclovir 400mg BID -Heme/onc consulted while inpatient, preliminary read from heme/onc with pathology of bone marrow biopsy showed blast cells up to 90% -Bone biopsy read complete read still pending. -Concerns regarding MDS versus myeloid leukemia based on peripheral smear -CT head, CTA head/neck negative. CT A/P, CT chest without significant findings -Prior to transfer WBC 0.87, Hgb 7.4, platelet 58, neutrophil 0.04, Blast 0.09. -Contacted [facility] for Transfer per Heme/onc here. Dr. Morrow accepting physician, patient to be transferred when transport arrives. Lumbar degenerative disc disease/low back pain/complex regional pain syndrome -Hold Celebrex -Continue hydrocodone as needed, IV Tylenol ordered Code status: Full code. Pending Studies at Discharge: Yes (Bone biopsy cytology) Stand-Alone Forms: My [facility]3 Metrics Skilled Items Patient informed of condition?: Yes DNR: No Discharge Level of Care: Other Communicable Disease: No Discharge Prognosis: Stable Lines: Peripheral IV Urinary Catheter: No Medications and DC Order Prescriptions: New fluconazole [Diflucan] 100 mg Tablet 100 mg PO QAM Qty: 0 0RF acyclovir 400 mg Tablet 400 mg PO BID Qty: 0 0RF cyanocobalamin (vitamin B-12) 1,000 mcg/mL Solution 1,000 mcg IM QAM Qty: 0 0RF levofloxacin 500 mg Tablet 500 mg PO DAILY@1100 Qty: 0 0RF Continued hydrocodone-acetaminophen 7.5-325 mg tablet 1 - 2 tab PO BID PRN (Reason: pain) Qty: 120 0RF bupropion HCl [Wellbutrin SR] 200 mg tablet sustained-release 12 hr 200 mg PO BID Qty: 180 3RF Discontinued celecoxib [Celebrex] 200 mg capsule 200 mg PO DAILY PRN (Reason: pain) Qty: 30 0RF Discharge Orders: Discharge Order (Routine); Ordered 06/01/23 Ordered By: Kota Mcgee Admission Data Admit Date/Time: 05/31/23 02:02 Attending Provider: Holly Queen Admit Provider: Jayson Krueger Primary Care Provider: Vini Burkett Other Providers: Jayson Krueger; Darrius Tay Supervising Physician Co-Signing Physician Notes Attending Physician Supervision Note: I independently interviewed and examined the patient and verified the ansari history and physical, reviewed labs and image studies and agree with findings and care plan noted above. Resident Activity Tracking Resident Involvement: Resident Care Provided Care Provided: Adult Hospital Medicine
--- NOTE | 2023-06-02 06:15 | Electrocardiogram Report ---
Test Reason : Blood Pressure : / mmHG Vent. Rate : 116 BPM Atrial Rate : 116 BPM P-R Int : 142 ms QRS Dur : 076 ms QT Int : 326 ms P-R-T Axes : 055 000 022 degrees QTc Int : 453 ms Sinus tachycardia Cannot rule out Anterior infarct , age undetermined Nonspecific T wave abnormality Abnormal ECG No previous ECGs available Confirmed by Shahid Murphy ([id number]) on 06/02/2023 6:14:45 AM Referred By: REFERRED SELF Confirmed By:Shahid Murphy
[2023-06-02 07:30] LABS: ALC (manual) 1.28 K/uL (1.2-3.4); ANC (manual) 0.09 K/uL (1.4-6.5); Blast # (manual) 0.09 K/uL (0-0); Blast Cells % (manual) 6 %; Lymphocytes # (manual) 1.28 K/uL (1.2-3.4); Lymphocytes % (manual) 87 %; Monocytes # (manual) 0.01 K/uL (0.11-0.59); Monocytes % (manual) 1 %; Neutrophils # (manual) 0.09 K/uL (1.40-6.50); Neutrophils % (manual) 6 %
== END 2023-06-01 15:58 | disposition short-term general hospital (02) | DRG 835 ==
LOC: ED 20:37 → EDINP 05-31 02:02 → SUATTDRO 05-31 02:02 → 2E 05-31 04:51